=== PATIENT | female | born 1990 | race Caucasian/White ===

== ENCOUNTER 2016-05-15 12:26 | Inpatient (IN) | payer OTHER ==
[~2016-05-15] VITALS: Ht 170.2 cm; Wt 83.9 kg
[2016-05-15 15:07] LABS: ABSOLUTE BASOPHIL COUNT 0.1 /CUMM (0.0-0.2); ABSOLUTE EOSINOPHIL COUNT 0.1 /CUMM (0.0-0.7); ABSOLUTE GRANULOCYTE CT 5.2 /CUMM (1.4-6.5); ABSOLUTE LYMPH COUNT 2.9 /CUMM (1.2-3.4); ABSOLUTE MONOCYTE COUNT 0.9 /CUMM (0.10-0.60); BASOPHIL % 0.9 % (0.0-2.0); EOSINOPHIL % 1.3 % (0-5); GRANULOCYTE % 57.1 % (42.2-75.2); MEAN CORPUSCULAR HGB 27.6 PG (27.0-31.0); MEAN CORPUSCULAR HGB CONC 33.2 G/DL (33.0-37.0); MEAN CORPUSCULAR VOLUME 83.1 FL (81.0-99.0); MEAN PLATELET VOLUME 8.6 FL (7.4-10.4); PLATELET COUNT 250 /CUMM (130-400); RBC DISTRIBUTION WIDTH 16.4 % (11.5-14.5); RED BLOOD CELL CT 5.29 /CUMM (4.20-5.40); WHITE BLOOD CELL COUNT 9.1 /CUMM (4.8-10.8)
--- NOTE | 2016-05-15 15:18 | ED GI/GU/ABDOMINAL COMPLAINT ---
History of Present Illness General Chief Complaint: Abdominal Pain/Flank Pain Stated Complaint: NVD, ABD PAIN Source: patient Exam Limitations: no limitations Allergies Coded Allergies: doxycycline (Severe, INCREASED CRANIAL PRESSURE 05/15/16) morphine (Severe, ANAPHYLAXIS 05/15/16) lorazepam (From ATIVAN) (Intermediate, PSYCHOSIS 05/15/16) meperidine (From DEMEROL) (Intermediate, RASH 05/15/16) ibuprofen (From MOTRIN) (Mild, HX GASTRIC ULCERS, CAUSES IRRITATION AND BLEEDING 05/15/16) Reconcile Medications Clonazepam 0.5 MG TABLET 1 TAB PO BIDP PRN ANXIETY (Reported) Desvenlafaxine Succinate (Pristiq ER) 50 MG TAB.ER.24H 1.5 TAB PO DAILY Depression (Reported) Dexlansoprazole (Dexilant) 60 MG CAP.DR.BP 1 CAP PO BID REFLUX (Reported) Hydroxyzine HCl 50 MG TABLET 1 TAB PO BID INSOMNIA (Reported) Methadone Hydrochloride (Methadone HCl) 10 MG TABLET 65 MG PO DAILY PAIN ( Reported) CONFIRMED WITH [facility] ON 05/16/16 Mirtazapine 30 MG TABLET 2 TAB PO QHS INSOMNIA (Reported) Ondansetron (Zofran Odt) 4 MG TAB.RAPDIS 1 TAB SL TID NAUSEA (Reported) Pantoprazole Sodium (Protonix) 40 MG TABLET.DR 1 TAB PO DAILY REFLUX ( Reported) Prazosin HCl (Minipress) 5 MG CAPSULE 1 CAP PO QPM INSOMNIA (Reported) Prochlorperazine Maleate 5 MG TABLET 1 TAB PO 4 TIMES/DAY Nausea (Reported) Quetiapine Fumarate 200 MG TABLET 1 TAB PO BID DEPRESSION/INSOMNIA (Reported) Quetiapine Fumarate 200 MG TABLET 3 TAB PO QPM INSOMNIA (Reported) Triage Note: HISTORY OF PANCREATITIS AND THAT FOR 2 WEEKS SHE HAS HAD ABD PAIN RUQ INTO HER BACK AND N/V Triage Nurses Notes Reviewed? yes ? N Is pt currently ? No HPI: This patient is a 26-year-old female with a past medical history including perforated gastric ulcers and hereditary pancreatitis who presented to the emergency department today brought in by her mother for evaluation of abdominal pain and vomiting 3 days. Patient reported that she does vomit more than the average person at baseline. However, over the last week she has had increased nausea and abdominal. She reported that the abdominal pain is located in her right upper quadrant and radiates to her back. The pain gets up to a 10 out of 10, sharp. The pain is worse with eating. Over the last day she has had increased vomiting and has been unable to tolerate any food by mouth. She denied any blood in the vomitus. She denies any diarrhea or blood in the stool. The patient reported no fevers, chills, chest pain, difficulty breathing, or back pain. (MARILY ASKEW PA-C) Vital Signs & Intake/Output Vital Signs & Intake/Output Vital Signs Date Time Temp Pulse Resp B/P Pulse O2 O2 Flow FiO2 Ox Delivery Rate 05/17 0623 97.8 62 20 122/70 96 Room Air 05/16 2157 97.7 56 20 102/64 95 Room Air 05/16 1346 97.7 72 18 112/70 95 Room Air ED Intake and Output 05/17 0000 05/16 1200 Intake Total 2500 1000 Output Total 1525 230 Balance 975 770 Intake, IV 2050 800 Intake, Oral 450 200 Output, 275 Emesis Output, Urine 1250 230 Patient 185 lb Weight Past History Travel History Traveled to [place] past 21 day No Medical History Any Pertinent Medical History? 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 No (MARILY ASKEW PA-C) Review of Systems Review of Systems Constitutional: Reports: no symptoms. EENTM: Reports: no symptoms. Respiratory: Reports: no symptoms. Cardiovascular: Reports: no symptoms. GI: Reports: see HPI. Genitourinary: Reports: no symptoms. Musculoskeletal: Reports: no symptoms. Skin: Reports: no symptoms. Neurological/Psychological: Reports: no symptoms. All Other Systems: Reviewed and Negative (MARILY ASKEW PA-C) Physical Exam Physical Exam Gastrointestinal: normal bowel sounds, soft, no organomegaly, NONDISTENDED. nORMOACTIVE BOWEL SOUNDS. tYMPANIC TO PERCUSSION IN ALL 4 QUADRANTS. nO REBOUND OR GUARDING. tENDERNESS TO PALPATION IN THE RIGHT UPPER QUADRANT. pOSITIVE Zee SIGN. nO mCbURNEY'S POINT TENDERNESS. Comments: Well-developed well-nourished person in no acute distress HEENT: Normal EENT exam, head normocephalic, moist mucous membranes Neck: Supple, no lymphadenopathy Back: Normal inspection Cardiovascular: Regular rate and rhythm with no murmurs, rubs or gallops Respiratory: No respiratory distress. Speaking in full sentences. Lungs clear to auscultation bilaterally Extremity: No edema, no calf tenderness to palpation, normal and equal pulses. Neuro: Alert oriented x3, cranial nerves II through XII grossly intact. Skin: No appreciable rash on exposed skin, skin is warm and dry. Psych: Mood and affect is normal Core Measures ACS in differential dx? Yes Severe Sepsis Present: No Septic Shock Present: No (AZAR GEORGE,MARILY) Progress Differential Diagnosis: AAA, AMI, appendicitis, biliary colic, bowel obstruction , colon cancer, cholecystitis, diverticulitis, ectopic , gastritis, hepatitis, ischemic bowel, inflamm bowel dis, intrauterine , kidney stone, ovarian cyst, ovarian torsion, pancreatitis, PID/cervicitis, peptic ulcer , PUD/GERD, perforated viscous, threatened AB, UTI/pyelo Diagnostic Imaging: Viewed by Me: CT Scan. Discussed w/RAD: CT Scan. Radiology Impression: PATIENT: DAY NEGRETE PRESENT AGE: 26 PATIENT ACCOUNT NO: [id number] : 90 LOCATION: [facility] ORDERING PHYSICIAN: MARILY ASKEW PA-C SERVICE DATE: 05/15/16 EXAM TYPE: CAT - CT ABD & PELVIS W/O IV CONTRAS EXAMINATION: CT ABDOMEN AND PELVIS WITHOUT CONTRAST CLINICAL INFORMATION: 29-year-old female with abdominal pain and vomiting. COMPARISON: None. TECHNIQUE: Multidetector volumetric imaging was performed from the superior aspect of the liver through the pubic symphysis. Sagittal and coronal reformatted images were obtained on the technologist's workstation. Note that evaluation of the solid viscera of the abdomen is compromised by the lack of IV contrast. DLP: 500 mGy-cm. FINDINGS: Application Trainer view shows no evidence of intestinal obstruction. The patient's gallbladder has been surgically removed. LUNG BASES: There is mild dependent atelectasis of the left lower lobe. LIVER, GALLBLADDER, AND BILIARY TREE: The liver is normal in size, shape, and attenuation. No focal hepatic lesion or biliary ductal dilatation is present. The gallbladder has been removed. PANCREAS: Unremarkable. SPLEEN: Unremarkable. ADRENAL GLANDS: Unremarkable. KIDNEYS AND URETERS: The kidneys are normal in size, shape, and attenuation. No hydronephrosis, hydroureter, or calculi seen. No perinephric stranding. BLADDER: Significantly dilated. The dome of the bladder nearly approaches the level of the umbilicus. GASTROINTESTINAL TRACT: The small and large bowel are unremarkable. The appendix is unremarkable. ABDOMINAL WALL: No significant hernia is appreciated. LYMPH NODES: Normal. VASCULAR: Unremarkable. PELVIC VISCERA: Unremarkable. OSSEOUS STRUCTURES: Unremarkable. IMPRESSION: Abnormally dilated urinary bladder. DICTATED BY: HUGO BUSTAMANTE MD DATE/TIME DICTATED:05/15/161740 YOUTH PASTOR: MARCELINO DATE/TIME TRANSCRIBED:05/15/161740 CONFIDENTIAL, DO NOT COPY WITHOUT APPROPRIATE AUTHORIZATION. <Electronically signed in Other Vendor System> SIGNED BY: HUGO BUSTAMANTE MD 05/15/16 0208 Initial ED EKG: normal axis, normal intervals, normal p-waves, normal QRS complex, normal sinus rhythm, no ST T wave changes, 57 BPM Hand-Off Endorsed To: NADINE SINGLETON MD Endorsed Time: 2052 Pending: other (AZAR GEORGE,MARILY) Plan of Care: Orders Procedure Date/time Status Change service to 05/17 UN Active Lab Add-on Test 05/17 [facility] Active Granados, Insertion/Removal/Asses 05/16 1658 Active Pain Treatment and Response 05/16 1456 Active HEPATIC FUNCTION PANEL 05/16 0723 Complete Admit to inpatient 05/16 UNK Active Current Medications Sig/Shorty Start time Last Medication Dose Stop Time Status Admin Bisacodyl 5 MG DAILY 05/17 1000 AC (Dulcolax) Senna/Docusate Sodium 1 TAB BID 05/17 1000 AC (Senokot S) Bisacodyl 10 MG DAILY PRN 05/17 0915 AC (Dulcolax Supp) Clonazepam 0.5 MG BID PRN 05/16 1000 AC (KlonoPIN) 05/23 0959 Methadone HCl 65 MG DAILY 05/16 1000 AC (Dolophine) Acetaminophen 650 MG Q6P PRN 05/16 0515 AC (Tylenol) Departure Departure Disposition: STILL A PATIENT Condition: Stable Clinical Impression Primary Impression: Intractable vomiting Qualifiers: Vomiting type: unspecified Nausea presence: with nausea Qualified Code: R11.2 - Nausea with vomiting, unspecified Secondary Impressions: Bladder distention UTI (urinary tract infection) Qualifiers: Urinary tract infection type: site unspecified Hematuria presence: without hematuria Qualified Code: N39.0 - Urinary tract infection, site not specified Referrals: UNKNOWN (PCP) Departure Forms: Customer Survey General Discharge Information Observation Note Rationale for Observation: My rational for observation is as follows [this patient is a 26-year-old female with past medical history including hereditary pancreatitis and perforated gastric ulcers who presented to the emergency department today for evaluation of abdominal pain, nausea, vomiting. This patient's nausea and vomiting has been uncontrolled here in the emergency department. CT scan revealed dilated urinary bladder. Granados catheter is currently in place. UTI based on urinalysis this patient will need to be observed in the hospital for IV fluids, IV antiemetics, Granados catheter decompression, IV antibiotics, pain management, possible urology consultation, possible senior ui designer consultation, and close monitoring.]. (MARILY ASKEW PA-C) Departure Time of Disposition: 2122 Observation Note Physician Advisor Notified: SHAUNA MCBRIDE,NAHED [address] Patient In: Non-ED OBS Care Area Rationale for Observation: My rational for observation is as follows . PA/ROBOTIC WELD TECHNICIAN Co-Sign Statement Statement: ED Attending supervision documentation- [] I saw and evaluated the patient. I have also reviewed all the pertinent lab results and diagnostic results. I agree with the findings and the plan of care as documented in the PA's/ROBOTIC WELD TECHNICIAN's documentation. [X] I have reviewed the ED Record and agree with the PA's/ROBOTIC WELD TECHNICIAN's documentation. [] Additions or exceptions (if any) to the PAs/ROBOTIC WELD TECHNICIAN's note and plan are summarized below: [] (MANI MCBRIDE,NADINE) without hematuria Qualified Code: N39.0 - Urinary tract infection, site not specified Referrals: UNKNOWN (PCP) Departure Forms: Customer Survey General Discharge Information Observation Note Rationale for Observation: My rational for observation is as follows [this patient is a 26-year-old female with past medical history including hereditary pancreatitis and perforated gastric ulcers who presented to the emergency department today for evaluation of abdominal pain, nausea, vomiting. This patient's nausea and vomiting has been uncontrolled here in the emergency department. CT scan revealed dilated urinary bladder. Granados catheter is currently in place. UTI based on urinalysis this patient will need to be observed in the hospital for IV fluids, IV antiemetics, Granados catheter decompression, IV antibiotics, pain management, possible urology consultation, possible senior ui designer consultation, and close monitoring.]. (AZAR GEORGE,MARILY) Departure Time of Disposition: 2122 Observation Note Physician Advisor Notified: SHAUNA MCBRIDE,NAHED [address] Patient In: Non-ED OBS Care Area Rationale for Observation: My rational for observation is as follows . PA/ROBOTIC WELD TECHNICIAN Co-Sign Statement Statement: ED Attending supervision documentation- [] I saw and evaluated the patient. I have also reviewed all the pertinent lab results and diagnostic results. I agree with the findings and the plan of care as documented in the PA's/ROBOTIC WELD TECHNICIAN's documentation. [X] I have reviewed the ED Record and agree with the PA's/ROBOTIC WELD TECHNICIAN's documentation. [] Additions or exceptions (if any) to the PAs/ROBOTIC WELD TECHNICIAN's note and plan are summarized below: [] (MANI MCBRIDE,NADINE)
--- NOTE | 2016-05-15 17:55 | CT SCAN REPORT ---
EXAMINATION: CT ABDOMEN AND PELVIS WITHOUT CONTRAST CLINICAL INFORMATION: 29-year-old female with abdominal pain and vomiting. COMPARISON: None. TECHNIQUE: Multidetector volumetric imaging was performed from the superior aspect of the liver through the pubic symphysis. Sagittal and coronal reformatted images were obtained on the technologist's workstation. Note that evaluation of the solid viscera of the abdomen is compromised by the lack of IV contrast. DLP: 500 mGy-cm. FINDINGS: Lithographers Printer view shows no evidence of intestinal obstruction. The patient's gallbladder has been surgically removed. LUNG BASES: There is mild dependent atelectasis of the left lower lobe. LIVER, GALLBLADDER, AND BILIARY TREE: The liver is normal in size, shape, and attenuation. No focal hepatic lesion or biliary ductal dilatation is present. The gallbladder has been removed. PANCREAS: Unremarkable. SPLEEN: Unremarkable. ADRENAL GLANDS: Unremarkable. KIDNEYS AND URETERS: The kidneys are normal in size, shape, and attenuation. No hydronephrosis, hydroureter, or calculi seen. No perinephric stranding. BLADDER: Significantly dilated. The dome of the bladder nearly approaches the level of the umbilicus. GASTROINTESTINAL TRACT: The small and large bowel are unremarkable. The appendix is unremarkable. ABDOMINAL WALL: No significant hernia is appreciated. LYMPH NODES: Normal. VASCULAR: Unremarkable. PELVIC VISCERA: Unremarkable. OSSEOUS STRUCTURES: Unremarkable. IMPRESSION: Abnormally dilated urinary bladder.
--- NOTE | 2016-05-16 01:07 | History & Physical ---
VIANEY MCBRIDE,ANDREAS 05/16/16 0107: General Information and HPI MD Statement: I have seen and personally examined DAY NEGRETE and documented this H&P. The patient is a 26 year old F who presented with a patient stated chief complaint of abdominal pain[]. Source of Information: patient, family, old records Exam Limitations: no limitations History of Present Illness: 26 YO female who recently moved from [place] to [place] in 2014 with pmh significant for hereditary pancreatitis, perforated gastric ulcers presents c/o abdominal pain that has been present for the past 2 weeks along with vomiting for the past 3-4 days. Reports being unable to eat due to extreme nausea along with bilious vomiting. Denies blood in vomitus. Reports 4-5 episodes per day, denies diarrhea or constipation, febrile episodes or sick contacts. Reports that her abdominal pain is 9/10 and sharp over her right upper abdomen. She denies chest pain, sob, palpitations, lightheadness. She has had similar symptoms in the past and sees [place] [facility]. Allergies/Medications Allergies: Coded Allergies: doxycycline (Severe, INCREASED CRANIAL PRESSURE 05/15/16) morphine (Severe, ANAPHYLAXIS 05/15/16) lorazepam (From ATIVAN) (Intermediate, PSYCHOSIS 05/15/16) meperidine (From DEMEROL) (Intermediate, RASH 05/15/16) ibuprofen (From MOTRIN) (Mild, HX GASTRIC ULCERS, CAUSES IRRITATION AND BLEEDING 05/15/16) Home Med list Clonazepam 0.5 MG TABLET 1 TAB PO BIDP PRN ANXIETY (Reported) Ondansetron (Zofran Odt) 4 MG TAB.RAPDIS 1 TAB SL TID NAUSEA (Reported) Compliance With Home Meds: UNKNOWN Past History Travel History Traveled to [place] past 21 day No Medical History Neurological: NONE EENT: NONE Cardiovascular: NONE Respiratory: NONE Gastrointestinal: pancreatitis, VOMITTING SYNDROME PERFORATED GASTRIC ULCER Hepatic: NONE Renal: NONE Musculoskeletal: NONE Psychiatric: NONE Endocrine: NONE Blood Disorders: NONE Cancer(s): NONE 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 Home Who Do You Live With? parent, sibling Services at Home: None Primary Language: Prydeinig Smoking Status: Current Everyday Smoker ETOH Use: denies use Illicit Drug Use: marijuana Functional Ability ADLs Independent: dressing, eating, toileting, bathing. Ambulation: independent IADLs Independent: shopping, housework, finances, food prep, telephone, transportation , medication admin. 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 Denies: fever. EENTM: Reports: no symptoms. Cardiovascular: Denies: chest pain, palpitations, peripheral edema, syncope. Respiratory: Denies: cough, hemoptysis, orthopnea, short of breath, sputum production. GI: Reports: abdominal pain, nausea, vomiting. Denies: bloating, constipation, diarrhea, distention, bowel incontinence, bloody stool, changes in stool. Genitourinary: Denies: discharge, dysuria, frequency, hematuria, pain. Musculoskeletal: Denies: back pain, joint pain, muscle pain. Skin: Reports: no symptoms. Neurological/Psychological: Reports: anxiety. Hematologic/Endocrine: Reports: no symptoms. Immunologic/Allergic: Reports: no symptoms. All Other Systems: Reviewed and Negative Date of LMP: 05/01/16 Exam & Diagnostic Data Last 24 Hrs of Vital Signs/I&O Vital Signs Date Time Temp Pulse Resp B/P Pulse O2 O2 Flow FiO2 Ox Delivery Rate 05/16 0128 98.0 56 20 90/56 98 Room Air 05/16 0104 97.6 50 18 106/56 95 Room Air 05/15 2240 97.8 70 16 110/55 96 Room Air Room Air 05/15 1929 97.7 76 16 108/56 95 Room Air 05/15 1619 98.1 68 16 113/57 96 Room Air 05/15 1513 98 Room Air 05/15 1247 98.4 122 16 121/82 97 Room Air Intake & Output 05/16 0800 05/16 0000 05/15 1600 Intake Total 1000 1000 Output Total 180 800 Balance -691 895 0288 Intake, IV 1000 1000 Output, Urine 180 800 Patient 185 lb 185 lb Weight Physical Exam General Appearance Alert, Oriented X3, Cooperative, Mild Distress Skin No Breakdown, No Significant Lesion HEENT Atraumatic, PERRLA, EOMI, dry mucous membranes Neck Supple, No JVD, No LAD Cardiovascular Regular Rate, Normal S1, Normal S2, No Murmurs Lungs Clear to Auscultation, Normal Air Movement Abdomen Normal Bowel Sounds, Soft, No Tenderness Neurological Normal Gait, Normal Speech, Strength at 5/5 X4 Ext Extremities No Edema, Normal Pulses Vascular Normal Pulses Diagnostic Data Other Results IMPRESSION: Abnormally dilated urinary bladder. Assessment/Plan Assessment: 26 YO F with pmh of hereditory pancreatitis, perforated gastric ulcers presents to the hospital c/o intense abdominal pain with associated nausea/vomiting found to have abn dilated urinary bladder which is likely secondary to narcotic use. We will admit to floor. Intractable vomiting. This could be due her IBS vs cyclic vomiting syndrome. She would need to curb her marijaunia use to further identify the cause of her repeated vomiting. She has been advised of this. At this point we will rest her bowels, provide IVF to maintain electrolytes Bladder Distension This is most likely due to her use of narcotics, after placement of dee 800cc was removed from bladder. We will keep the dee in at this time and remove in the am, and trial her. She was advised to limit use of narcotics. UTI unlikely as afebrile, negative symptomology, normal white count. Dirty sample? will hold off on abx at this time and monitor for signs of infection. Abdominal Pain Chronic in nature, using methadone for pain control, goes to [facility] in [place]. Recieves 60mg of methadone daily for pain control. Will start methadone, this will need to be confirmed in the am by team. As Ranked By This Provider Problem List: 1. Intractable vomiting Qualifiers Vomiting type: unspecified Nausea presence: with nausea Qualified Code: R11.2 - Nausea with vomiting, unspecified 2. Bladder distention 3. UTI (urinary tract infection) Qualifiers Urinary tract infection type: site unspecified Hematuria presence: without hematuria Qualified Code: N39.0 - Urinary tract infection, site not specified Core Measures/Miscellaneous Acute Coronary Syndrome ACS Diagnosis: No Cerebrovascular Accident CVA/TIA Diagnosis: No Congestive Heart Failure CHF Diagnosis: No Venous Thromboembolism VTE Risk Factors: Obesity, Smoking VTE Prophylaxis Ordered Inpt: Pharm- Lovenox No Mech VTE prophylaxis d/t: No contraindications No VTE Pharm Prophylaxis d/t: No contraindications VTE Diagnosis: No VTE Type: NONE VTE Confirmed by (Test): NONE Severe Sepsis Severe Sepsis Present: No Septic Shock Septic Shock Present: No Miscellaneous Documentation Attending Case Discussed With: CAMPBELL MCBRIDE,[facility] Primary Care Physician: UNKNOWN Patient sees these Specialists GI Level of Patient Care: General Medicine CAMPBELL MCBRIDE, [facility] 05/16/16 0649: Attending MD Review Statement Attending Statement Attending MD Statement: examined this patient, discuss w/resident/PA/MEDICAL AND HEALTH SERVICES MANAGER, agreed w/resident/PA/MEDICAL AND HEALTH SERVICES MANAGER Attending Assessment/Plan: 26 yo F with h/o hereditary chronic pancreatitis, cyclic vomiting, chronic pain on methadone ([facility] [place], 60 mg), perforate gastric ulcer s/p surgery, is here with intractable nausea, vomiting and RUQ abdominal pain for past 3 days. She has recently moved from [place] to [place]. She has been seen at [place] or [facility] previously. Denies diarrhea, fever or chills. Patient reports using opiates from her friend to help with her abdominal pain. She also tried weed with no relief. Vitals: borderline BP. Labs: AST 64, ALT 62, amylase/lipase normal, UA packed epi cells (not a good sample), Utox positive for opiates, methadone, benzos and cannabis. Alcohol < 10. CT abd/pelvis: Abnormally dialted urinary bladder. Dee inserted in ER 800 cc urine drained. 1. Intractable nausea, vomiting and RUQ pain in the setting of narcotic use vs. CVS vs. Gastroparesis. 23 Obs on GM, NPO, IV fluids, anti-emetics, IV PPI. Advance diet as tolerated. Avoid opiates for pain management. Consider tylenol or tramadol and ketorolac for pain. Consider GI consult if her symptoms do not improve. 2. No evidence of UTI. 3. Chronic pain. Ct. Methadone after confirming dose in AM. DVT ppx Lovenox. Full code.
[2016-05-16 01:28] VITALS: BP 90/56
[2016-05-16] MEDS ORDERED: CLONAZEPAM0.5 M2 PO (04:06)
[2016-05-16] MEDS ORDERED: ZOFRAN ODT4 M1 SL (04:07)
[2016-05-16 07:06] VITALS: BP 130/70
[2016-05-16] MEDS ORDERED: HYDROXYZINE HCL50 M1 PO (09:35)
[2016-05-16] MEDS ORDERED: QUETIAPINE FUM200 M1 PO ×2 (09:36→09:37)
[2016-05-16] MEDS ORDERED: MINIPRESS5 MG PO (09:36)
[2016-05-16] MEDS ORDERED: MIRTAZAPINE30 M2 PO (09:37)
[2016-05-16] MEDS ORDERED: PRISTIQ ER50 MG PO (09:38)
[2016-05-16] MEDS ORDERED: PROTONIX40 M3 PO (09:39)
[2016-05-16] MEDS ORDERED: DEXILANT60 M1 PO (09:40)
[2016-05-16] MEDS ORDERED: PROCHLORPERAZINE5 M2 PO (09:41)
[2016-05-16] MEDS ORDERED: METHADONE HCL10 M1 PO (09:44)
[2016-05-16 13:46] VITALS: BP 112/70
--- NOTE | 2016-05-16 15:07 | Cons- Gastroenterology ---
General Information and HPI Allergies/Medications Allergies: Coded Allergies: doxycycline (Severe, INCREASED CRANIAL PRESSURE 05/15/16) morphine (Severe, ANAPHYLAXIS 05/15/16) lorazepam (From ATIVAN) (Intermediate, PSYCHOSIS 05/15/16) meperidine (From DEMEROL) (Intermediate, RASH 05/15/16) ibuprofen (From MOTRIN) (Mild, HX GASTRIC ULCERS, CAUSES IRRITATION AND BLEEDING 05/15/16) Home Med List: Clonazepam 0.5 MG TABLET 1 TAB PO BIDP PRN ANXIETY (Reported) Desvenlafaxine Succinate (Pristiq ER) 50 MG TAB.ER.24H 1.5 TAB PO DAILY Depression (Reported) Dexlansoprazole (Dexilant) 60 MG CAP.DR.BP 1 CAP PO BID REFLUX (Reported) Hydroxyzine HCl 50 MG TABLET 1 TAB PO BID INSOMNIA (Reported) Methadone Hydrochloride (Methadone HCl) 10 MG TABLET 65 MG PO DAILY PAIN ( Reported) CONFIRMED WITH [facility] [place] ON 05/16/16 Mirtazapine 30 MG TABLET 2 TAB PO QHS INSOMNIA (Reported) Ondansetron (Zofran Odt) 4 MG TAB.RAPDIS 1 TAB SL TID NAUSEA (Reported) Pantoprazole Sodium (Protonix) 40 MG TABLET.DR 1 TAB PO DAILY REFLUX ( Reported) Prazosin HCl (Minipress) 5 MG CAPSULE 1 CAP PO QPM INSOMNIA (Reported) Prochlorperazine Maleate 5 MG TABLET 1 TAB PO 4 TIMES/DAY Nausea (Reported) Quetiapine Fumarate 200 MG TABLET 1 TAB PO BID DEPRESSION/INSOMNIA (Reported) Quetiapine Fumarate 200 MG TABLET 3 TAB PO QPM INSOMNIA (Reported) Past History Travel History Traveled to [place] past 21 day No Medical History Blood Transfusion Hx: No Neurological: NONE EENT: NONE Cardiovascular: NONE Respiratory: NONE Gastrointestinal: pancreatitis, VOMITTING SYNDROME PERFORATED GASTRIC ULCER Hepatic: NONE Renal: NONE Musculoskeletal: NONE Psychiatric: NONE Endocrine: NONE Blood Disorders: NONE Cancer(s): NONE PROTECTION ENGINEER/Reproductive: NONE Surgical History Surgical History: non-contributory Psychosocial History Where Do You Live? Home Who Do You Live With? parent, sibling Services at Home: None Primary Language: [place] Citizen Smoking Status: Current Everyday Smoker ETOH Use: denies use Illicit Drug Use: marijuana Functional Ability ADLs Independent: dressing, eating, toileting, bathing. Ambulation: independent IADLs Independent: shopping, housework, finances, food prep, telephone, transportation , medication admin. 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
[2016-05-16 21:57] VITALS: BP 102/64
[2016-05-17 06:23] VITALS: BP 122/70
[2016-05-17 14:01] VITALS: BP 118/64
--- NOTE | 2016-05-17 16:01 | PN- Housestaff ---
RADHA REDDY MD 05/17/16 1600: Subjective Follow-up For: Intractible Nausea/Vomiting Chronic Pancreatitis Subjective: Patient seen and examined. She is seen lying flat in her bed appearing mildly uncomfortable. She appears to be in no acute distress. She reports 3/4 episode of vomiting overnight and states that she "brings up what [she] drinks". She has not tried any solid food and states she hasn't eaten since the previous sunday. She is complaining of the discomfort associated with the dee catheter and reports associated constipation as she is "afraid to strain" while the dee catheter is in. Otherwise she denies any headache, fever, chills, chest pain, shortness of breath, palpitations, diarrhea. No overnight events reported. Review of Systems Constitutional: Reports: see HPI. Objective Last 24 Hrs of Vital Signs/I&O Vital Signs Date Time Temp Pulse Resp B/P Pulse O2 O2 Flow FiO2 Ox Delivery Rate 05/17 1401 98.0 64 20 118/64 95 05/17 0623 97.8 62 20 122/70 96 Room Air 05/16 2157 97.7 56 20 102/64 95 Room Air Intake & Output 05/17 1600 05/17 0800 05/17 0000 Intake Total 1550 Output Total 500 250 900 Balance -500 -250 650 Intake, IV 1200 Intake, Oral 350 Number 0 Bowel Movements Output, 200 Emesis Output, Urine 500 250 700 Physical Exam General Appearance: Alert, Oriented X3, Cooperative, No Acute Distress Other Physical Findings: General - well developed, well nourished tired/anxious young woman in no acute distress HEETN - NCAT, PERRL, EOMI, anicteric sclera, dry mucuous membranes CVS - S1, S2 w/o m/g/r Resp - CTA bilaterally GI - soft, moderate RUQ/epigastric tenderness, nondistended, bowel sounds present Neuro - awake and alert, CN II - XII grossly intact Ext - distal pulses 2+, no lower extremity edema Current Medications: Current Medications Sig/Shorty Start time Last Medication Dose Route Stop Time Status Admin Acetaminophen 650 MG Q6P PRN 05/16 0515 AC PO Bisacodyl 5 MG DAILY 05/17 1000 AC PO Bisacodyl 10 MG DAILY PRN 05/17 0915 AC AR Clonazepam 0.5 MG BID PRN 05/16 1000 AC PO 05/23 0959 Diazepam 2 MG Q12P PRN 05/17 1745 AC PO Enoxaparin Sodium 40 MG DAILY 05/16 1000 AC 05/17 SC 0822 Hydromorphone HCl 0.5 MG Q4P PRN 05/16 1000 AC 05/17 IV 1706 Ketorolac 15 MG Q8P PRN 05/16 0115 AC 05/17 Tromethamine IV 05/21 0114 1221 Methadone HCl 65 MG DAILY 05/16 1000 AC PO Metoclopramide HCl 10 MG Q6P PRN 05/16 0915 AC 05/17 IV 1625 Ondansetron HCl 4 MG Q6P PRN 05/16 0830 DC 05/17 IV 0421 Pantoprazole Sodium 40 MG DAILY 05/16 1000 AC 05/17 IV 0822 Patient Medication 1 ED ONE ONE 05/17 1415 DC Teaching ED 05/17 1416 Promethazine HCl 25 MG Q4P PRN 05/17 1400 AC 05/17 IV 05/24 1359 1423 Promethazine HCl 25 MG ONCE ONE 05/16 1945 DC 05/16 IV 05/16 1946 1948 Senna/Docusate Sodium 1 TAB BID 05/17 1000 AC PO Sodium Chloride 1,000 ML Q6H 05/16 1030 AC 05/17 IV 1627 Trimethobenzamide HCl 200 MG TID PRN 05/16 1800 AC 05/17 IM 1208 Assessment/Plan Assessment: Patient continues to have intractible nausea/vomiting despite an aggressive antiemetic regimen. She is unable to tolerate any liquids by mouth and is declining trying any solid foods. Dee catheter that was placed for urinary retention will be removed today to initiate a voiding trial. Collateral information regarding her previous GI workup from her gastroenterologists Dr Guardado and her provider at [facility] was unavailable today. She is continued on her antiemetic regimen and dilaudid for pain control. Intractible Nausea/Vomiting/Chronic Pancreatitis: History of chronic pancreatitis since "age 16", previously a patient of pediatric screen print operator Dr. Guardado of [place], now seen by a screen print operator at [facility]. She was reportedly supposed to have an upper endoscopy for further evaluation of her symptoms as an outpatient but has not yet persued this reportedly due to insurance reasons. She reports multiple hospitalizations similar to this admission, but admits these symptoms are "much worse". -NS@150mL/hr -Pancreatic enzymes, on hold for nausea/vomiting -Tigan 200mg IM TID PRN nausea -Phenergan 25mg IV Q4H PRN nausea -Metoclopramide 10mg IV Q6H PRN nausea -Zofran discontinued, reportedly "does not help" -Protonix 40mg IV Daily -GI Consult Insomnia/Depression: Patient takes multiple oral medications for a reported history of depression and insomnia. -Hold oral medications, restart when tolerating PO -Monitor for signs of withdrawal / altered mental status / psychosis Chronic Opiate Dependence/Polysubstance abuse: History of opiate abuse/dependence, on methadone. Dose of 65mg confirmed with Methadone clinic last received 05/14/16. Urine toxicology postive for opiates, methadone, benzodiazepnes, and canabis on admission. -Methadone 65mg PO Daily -Valium 2mg PO Q12H PRN agitation Constipation: -Dulcolax SUPP Daily PRN -Dulcolax 5mg PO Daily -Senokot 1 TAB PO BID Pain Plan: -Acetaminophen 650mg PO Q6H PRN Pain 1-3 -Toradol 15mg IV Q8H PRN Pain 4-6 -Dilaudid 0.5mg IV Q4H PRN Pain 7-10 Diet - Clear liquid diet DVT PPx - Lovenox Code Status - FULL CODE Problem List: 1. Intractable vomiting Pain Ratin Pain Location: Abdomen Pain Goal: Pain 7 or less Pain Plan: As noted in plan Tomorrow's Labs & Rationales: CBC - hx of gastric bleed, monitor for hemoglobin drop BEP - nausea vomiting, monitor for electrolyte abnormalities LAURENCE DAIGLE MD 05/17/16 1722: Attending MD Review Statement Attending Statement Attending MD Statement: examined this patient, discuss w/resident/PA/TESTING CONSULTANT, agreed w/resident/PA/TESTING CONSULTANT, reviewed EMR data (avail) Attending Assessment/Plan: 26F PMH anxiety, depression, chronic abdominal pain, history of gastric ulcers and cholecystectomy, family history of hereditary pancreatitis but never confirmed in patient presenting with intractable nausea, vomiting, and diffuse abdominal pain. Pain and nausea are slightly improved today but patient is still unable to keep anything down. She is helped by Phenergen and is trying to eat and drink. No BM for a week. Afebrile, stable vitals, labs unremarkable. Plan - Continue IV hydration - Continue Phenergen, Zofran, Reglan - Continue IV Dilaudid - Valium 2.5mg q12h PRN - Obtain outpatient GI records - Consider GI consult if no improvement by tomorrow - Advance diet as tolerated - Monitor electrolytes - Continue home medications - DVT PPx
[2016-05-17 22:51] VITALS: BP 118/80
--- NOTE | 2016-05-18 07:15 | PN- Housestaff ---
BARRY MCBRIDE,RADHA 05/18/16 0714: Subjective Follow-up For: Intractible Nausea/Vomiting Subjective: Patient seen and examined. She is seen sitting upright in bed resting comfortably. She appears to be in no acute distress. She admits that her nausea is mildly better today, but states that her abdomenal pain in still present. She has not been able to eat much more than austrian ice but wants to try more foods that are within her vegetarian diet. Additionally she denies any headache, fever, chills, chest pain, shortness of breath, nausea, vomiting, diarrhea. No overnight events. Review of Systems Constitutional: Reports: see HPI. Objective Last 24 Hrs of Vital Signs/I&O Vital Signs Date Time Temp Pulse Resp B/P Pulse O2 O2 Flow FiO2 Ox Delivery Rate 05/18 1342 97.9 57 20 128/60 96 Room Air 05/17 2251 98.6 67 20 118/80 96 Room Air Intake & Output 05/18 1600 05/18 0800 05/18 0000 Intake Total 1250 1210 1600 Output Total 350 650 Balance 1250 860 950 Intake, IV 1200 1200 1600 Intake, Oral 50 10 Number 0 0 Bowel Movements Output, Urine 350 650 Physical Exam General Appearance: Alert, Oriented X3, Cooperative, No Acute Distress Other Physical Findings: General - well developed, well nourished young woman in no acute distress HEENT - NCAT, PERRL, EOMI, anicteric sclera, MMM CVS - S1, S2 w/o m/g/r Resp - CTA bilaterally GI - soft, mild RUQ/epigastric tenderness, nondistended, bowel sounds present Neuro - Awake and alert, CN II - XII grossly intact Ext - 2+ distal pulses, no cyanosis/clubbing/edema Current Medications: Current Medications Sig/Shorty Start time Last Medication Dose Route Stop Time Status Admin Acetaminophen 650 MG Q6P PRN 05/16 0515 AC PO Bisacodyl 5 MG DAILY 05/17 1000 AC PO Bisacodyl 10 MG DAILY PRN 05/17 0915 AC [place] Clonazepam 0.5 MG BID PRN 05/16 1000 AC PO 05/23 0959 Diazepam 2 MG BID PRN 05/18 1045 AC 05/18 IV 1120 Diazepam 2 MG Q12P PRN 05/17 1745 DC PO Enoxaparin Sodium 40 MG DAILY 05/16 1000 AC 05/17 SC 0822 Hydromorphone HCl 0.5 MG Q4P PRN 05/16 1000 AC 05/18 IV 1327 Ketorolac 15 MG Q8P PRN 05/16 0115 AC 05/17 Tromethamine IV 05/21 0114 1221 Methadone HCl 65 MG DAILY 05/16 1000 AC 05/18 PO 0932 Metoclopramide HCl 10 MG Q6 05/18 1800 AC IV Metoclopramide HCl 10 MG Q6P PRN 05/16 0915 DC 05/18 IV 1130 Pantoprazole Sodium 40 MG BID 05/18 2200 AC IV Pantoprazole Sodium 40 MG DAILY 05/16 1000 DC 05/18 IV 0800 Patient Medication 1 ED .STK-MED ONE 05/18 1336 DC Teaching ED 05/18 1337 Prochlorperazine 5 MG Q6P PRN 05/18 1045 AC 05/18 IV 1326 Promethazine HCl 25 MG Q4P PRN 05/17 1400 AC 05/18 IV 05/24 1359 0800 Senna/Docusate Sodium 1 TAB BID 05/17 1000 AC PO Sodium Chloride 1,000 ML Q6H 05/16 1030 AC 05/18 IV 1445 Trimethobenzamide HCl 200 MG .STK-MED ONE 05/18 0305 DC IM 05/18 0306 Trimethobenzamide HCl 200 MG TID PRN 05/16 1800 AC 05/18 IM 0311 Last 24 Hrs of Lab/Alejandro Results Last 24 Hrs of Labs/Mics: Laboratory Tests 05/18/16 1110: Anion Gap 8, Estimated GFR > 60, BUN/Creatinine Ratio 4.0 L Assessment/Plan Assessment: Gastroenterology was reconsulted today for patients persistent nausea/vomiting despite an aggressive antiemetic regimen. It was decided to increase her protonix to BID and make her reglan a standing dose. Her diet was advanced, should she have persistent nausea/vomiting and is still unable to tolerate her diet Dr. Ceron will perform an upper endoscopy on her tomorrow. She is NPO overnight in anticipation of this. Her outpatient pain medicine physician Dr. Rolon was contacted today to obtain collateral information. She was last reportedly seen on 08/19/15 where it was decided she would require a gastric empyting study and upper endoscopy, but reports she was lost to follow up. He states that their records do not document a history of herediary pancreatitis and it was possibly given to her from her pediatric pain medicine physician. He is treating her for cyclic vomiting syndrome with oral antiemetics. His records willl be faxed to us for review. Intractible Nausea/Vomiting/Chronic Pancreatitis: History of chronic pancreatitis since "age 16", previously a patient of pediatric pain medicine physician Dr. Guardado of [place], now seen by a pain medicine physician at [facility]. She was reportedly supposed to have an upper endoscopy for further evaluation of her symptoms as an outpatient but has not yet persued this reportedly due to insurance reasons. She reports multiple hospitalizations similar to this admission, but admits these symptoms are "much worse". Her pain medicine physician Dr. Hall was contacted in regards to her clinical presentation and states that she has no documented evidence of pancreatitis and has been seen in his office twice for cyclical vomiting syndrome. His office is sending records regarding this. -NS@150mL/hr -Pancreatic enzymes, on hold for nausea/vomiting -Tigan 200mg IM TID PRN nausea -Phenergan 25mg IV Q4H PRN nausea -Metoclopramide 10mg IV Q6H PRN nausea -Zofran discontinued, reportedly "does not help" -Protonix 40mg IV BID -GI Consult Insomnia/Depression: Patient takes multiple oral medications for a reported history of depression and insomnia. -Hold oral medications, restart when tolerating PO -Monitor for signs of withdrawal / altered mental status / psychosis Chronic Opiate Dependence/Polysubstance abuse: History of opiate abuse/dependence, on methadone. Dose of 65mg confirmed with Methadone clinic last received 05/14/16. Urine toxicology postive for opiates, methadone, benzodiazepnes, and canabis on admission. -Methadone 65mg PO Daily -Valium 2mg PO Q12H PRN agitation Constipation: -Dulcolax SUPP Daily PRN -Dulcolax 5mg PO Daily -Senokot 1 TAB PO BID Pain Plan: -Acetaminophen 650mg PO Q6H PRN Pain 1-3 -Toradol 15mg IV Q8H PRN Pain 4-6 -Dilaudid 0.5mg IV Q4H PRN Pain 7-10 Diet - Clear liquid diet DVT PPx - Lovenox Code Status - FULL CODE Problem List: 1. Intractable vomiting Pain Ratin Pain Location: Abdomen Pain Goal: Pain 7 or less Pain Plan: As noted in plan Tomorrow's Labs & Rationales: BEP - nausea/vomiting LAURENCE DAIGLE MD 05/18/16 1435: Attending MD Review Statement Attending Statement Attending MD Statement: examined this patient, discuss w/resident/PA/EXECUTIVE ASSISTANT TO PRESIDENT, agreed w/resident/PA/EXECUTIVE ASSISTANT TO PRESIDENT, reviewed EMR data (avail) Attending Assessment/Plan: 26F PMH anxiety, depression, chronic abdominal pain, history of gastric ulcers and cholecystectomy, family history of hereditary pancreatitis but never confirmed in patient presenting with intractable nausea, vomiting, and diffuse abdominal pain. Pain and nausea are slightly improved today but patient is still unable to keep anything down. She is helped by Phenergen and is trying to eat and drink. No BM for a week. Afebrile, stable vitals, labs unremarkable. Slight improvement from yesterday. Able to tolerate sips of liquids but no solids. Still with pain. Plan - Continue IV hydration - Continue Phenergen, Zofran, Reglan, Compazine - Continue IV Dilaudid - Valium 2mg q12h PRN - Obtain outpatient GI records - Follow GI recommendations, may go for EGD tomorrow if no improvement in diet - Advance diet as tolerated - Monitor electrolytes - Continue home medications - DVT PPx
--- NOTE | 2016-05-18 11:55 | Cons- Gastroenterology ---
General Information and HPI Consulting Request Date of Consult: 05/18/16 Requested By: LAURENCE DAIGLE MD Reason for Consult: Intractable nausea and vomiting, history of hereditary pancreatitis. Source of Information: patient Exam Limitations: no limitations History of Present Illness: Ms. 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 She reports that her abdominal pain was consistent with her prior attacks of pancreatitis with midepigastric abdominal pain that radiated through to her back. This was associated with nausea and bilious vomiting. She reports the episodes of vomiting are similar to previous hospitalization she has had in the past and this has generally resolved with 1-2 days of antiemetics and antacids, but she notes that this episode seems to be lasting longer than it typically does. She is having normal bowel movements and she denies any bright blood per rectum, steatorhea, melena, diarrhea, or constipation. On admission she was hemodynamically stable and afebrile. She had unremarkable blood work and she was admitted to the medical service where she has received narcotics for pain control and IV Reglan, IV Tigan and IV Zofran, but has continued to have nausea and vomiting and inability to tolerate solid food intake. Her pain has improved and she has remained afebrile. Medical records have not been able to be obtained from her pediatric or adult gastroenterolosgist in [place]. She reports that she takes creon at home for her pancreatitis, but hasn't been getting it here because of the vomiting. She also reports that consideration has been given for an outpatient EGD by her fruit press operator, but this apparently hasn' t happened yet secondary to insurance issues. Allergies/Medications Allergies: Coded Allergies: doxycycline (Severe, INCREASED CRANIAL PRESSURE 05/15/16) morphine (Severe, ANAPHYLAXIS 05/15/16) lorazepam (From ATIVAN) (Intermediate, PSYCHOSIS 05/15/16) meperidine (From DEMEROL) (Intermediate, RASH 05/15/16) ibuprofen (From MOTRIN) (Mild, HX GASTRIC ULCERS, CAUSES IRRITATION AND BLEEDING 05/15/16) Home Med List: Clonazepam 0.5 MG TABLET 1 TAB PO BIDP PRN ANXIETY (Reported) Desvenlafaxine Succinate (Pristiq ER) 50 MG TAB.ER.24H 1.5 TAB PO DAILY Depression (Reported) Dexlansoprazole (Dexilant) 60 MG CAP.BP 1 CAP PO BID REFLUX (Reported) Hydroxyzine HCl 50 MG TABLET 1 TAB PO BID INSOMNIA (Reported) Methadone Hydrochloride (Methadone HCl) 10 MG TABLET 65 MG PO DAILY PAIN ( Reported) CONFIRMED WITH [facility] [place] ON 05/16/16 Metoclopramide HCl (Reglan) 10 MG TABLET 1 TAB PO TIDPRN NAUSEA/VOMITING 30 minutes before meals and bedtime Mirtazapine 30 MG TABLET 2 TAB PO QHS INSOMNIA (Reported) Ondansetron (Zofran Odt) 4 MG TAB.RAPDIS 1 TAB SL TID NAUSEA (Reported) Pantoprazole Sodium (Protonix) 40 MG TABLET.DR 1 TAB PO DAILY REFLUX ( Reported) Prazosin HCl (Minipress) 5 MG CAPSULE 1 CAP PO QPM INSOMNIA (Reported) Prochlorperazine Maleate 5 MG TABLET 1 TAB PO 4 TIMES/DAY Nausea (Reported) Quetiapine Fumarate 200 MG TABLET 1 TAB PO BID DEPRESSION/INSOMNIA (Reported) Quetiapine Fumarate 200 MG TABLET 3 TAB PO QPM INSOMNIA (Reported) Tramadol HCl 50 MG TABLET 1 TAB PO TIDPRN PAIN Current Medications: Current Medications Sig/Shorty Start time Last Medication Dose Route Stop Time Status Admin Acetaminophen 650 MG Q6P PRN 05/16 0515 AC PO Bisacodyl 5 MG DAILY 05/17 1000 AC PO Bisacodyl 10 MG DAILY PRN 05/17 0915 AC MD Clonazepam 0.5 MG BID PRN 05/16 1000 AC PO 05/23 0959 Diazepam 2 MG BID PRN 05/18 1045 AC 05/18 IV 1120 Diazepam 2 MG Q12P PRN 05/17 1745 DC PO Enoxaparin Sodium 40 MG DAILY 05/16 1000 AC 05/17 SC 0822 Hydromorphone HCl 0.5 MG Q4P PRN 05/16 1000 AC 05/18 IV 0802 Ketorolac 15 MG Q8P PRN 05/16 0115 AC 05/17 Tromethamine IV 05/21 0114 1221 Methadone HCl 65 MG DAILY 05/16 1000 AC 05/18 PO 0932 Metoclopramide HCl 10 MG Q6P PRN 05/16 0915 AC 05/18 IV 1130 Ondansetron HCl 4 MG Q6P PRN 05/16 0830 DC 05/17 IV 0421 Pantoprazole Sodium 40 MG DAILY 05/16 1000 AC 05/18 IV 0800 Patient Medication 1 ED ONE ONE 05/17 1415 DC Teaching ED 05/17 1416 Prochlorperazine 5 MG Q6P PRN 05/18 1045 AC IV Promethazine HCl 25 MG Q4P PRN 05/17 1400 AC 05/18 IV 05/24 1359 0800 Senna/Docusate Sodium 1 TAB BID 05/17 1000 AC PO Sodium Chloride 1,000 ML Q6H 05/16 1030 AC 05/18 IV 0640 Trimethobenzamide HCl 200 MG .STK-MED ONE 05/18 0305 DC IM 05/18 0306 Trimethobenzamide HCl 200 MG TID PRN 05/16 1800 AC 05/18 IM 0311 Past History Travel History Traveled to [place] past 21 day No Medical History Blood Transfusion Hx: No Neurological: NONE EENT: NONE Cardiovascular: NONE Respiratory: NONE Gastrointestinal: pancreatitis, VOMITTING SYNDROME PERFORATED GASTRIC ULCER Hepatic: NONE Renal: NONE Musculoskeletal: NONE Psychiatric: NONE Endocrine: NONE Blood Disorders: NONE Cancer(s): NONE 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 Home Who Do You Live With? parent, sibling Services at Home: None Primary Language: Panamanian Smoking Status: Current Everyday Smoker ETOH Use: denies use Illicit Drug Use: marijuana Functional Ability ADLs Independent: dressing, eating, toileting, bathing. Ambulation: independent IADLs Independent: shopping, housework, finances, food prep, telephone, transportation , medication admin. 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 Denies: fever. EENTM: Denies: no symptoms. Cardiovascular: Denies: no symptoms. Respiratory: Denies: no symptoms. GI: Reports: see HPI. Genitourinary: Denies: no symptoms. Musculoskeletal: Denies: no symptoms. Skin: Denies: no symptoms. Neurological/Psychological: Reports: depressed. Hematologic/Endocrine: Denies: no symptoms. Immunologic/Allergic: Denies: no symptoms. All Other Systems: Reviewed and Negative Exam & Diagnostic Data Vital Signs and I&O Vital Signs Date Time Temp Pulse Resp B/P Pulse O2 O2 Flow FiO2 Ox Delivery Rate 05/17 2251 98.6 67 20 118/80 96 Room Air 05/17 1401 98.0 64 20 118/64 95 Intake & Output 05/18 04005/17 04005/16 0400 Intake Total 1210 1600 1080 1550 1950 1000 Output Total 350 650 775 900 675 980 Balance 860 950 511 183 3037 20 Intake, IV 1200 1600 1050 1200 1650 1000 Intake, Oral 10 30 350 300 Number 0 0 Bowel Movements Output, 25 200 75 Emesis Output, Urine 350 650 750 700 600 980 Patient 185 lb Weight Physical Exam General Appearance: well developed/nourished, alert, awake, anxious, mild distress Head: atraumatic, normal appearance Eyes: Bilateral: normal appearance. Ears, Nose, Throat: normal pharynx, normal ENT inspection, hearing grossly normal Neck: normal inspection, supple, full range of motion Respiratory: normal breath sounds, chest non-tender, no respiratory distress Cardiovascular: regular rate/rhythm Gastrointestinal: normal bowel sounds, soft, non-tender Rectal: deferred Back: normal inspection, normal range of motion Extremities: normal inspection, no edema Neurologic/Psych: no motor/sensory deficits, awake, alert, oriented x 3 Skin: intact, normal color, warm/dry Results Pertinent Lab Results: Laboratory Tests 05/18 05/16 05/15 1110 0723 1610 Chemistry Sodium (137 - 145 mmol/L) Pending 139 Potassium (3.5 - 5.1 mmol/L) Pending 3.8 Chloride (98 - 107 mmol/L) Pending 107 Carbon Dioxide (22 - 30 mmol/L) Pending 22 Anion Gap (5 - 16) Pending 10 BUN Pending Creatinine Pending BUN/Creatinine Ratio Pending Total Bilirubin (0.2 - 1.3 mg/dL) 0.7 Direct Bilirubin (< 0.4 mg/dL) 0.4 AST (14 - 36 U/L) 38 H ALT (9 - 52 U/L) 53 H Alkaline Phosphatase (<127 U/L) 80 Total Protein (6.3 - 8.2 g/dL) 5.7 L Albumin (3.5 - 5.0 g/dL) 3.1 L Urines Urine Test NEGATIVE 05/15 05/15 1610 1544 Chemistry Lactic Acid Cancelled Toxicology Urine Opiates Screen (>2000 NG/ML) > 4000.00 H Methadone Screen (>300 NG/ML) > 735 H Barbiturate Screen (>200 NG/ML) < 60 Ur Phencyclidine Scrn (>25 NG/ML) 7.60 Amphetamines Screen (>1000 NG/ML) < 100 U Benzodiazepines Scrn (>200 NG/ML) > 800 H Urine Cocaine Screen (>300 NG/ML) < 50 Urine Cannabis Screen (>50 NG/ML) > 80.00 H Urines Urinalysis LIGHT H Urine Color (YEL,AMB,STR) YEL Urine Clarity (CLEAR) HAZY H Urine pH (5.0 - 8.0) 6.0 Ur Specific [place] (1.001 - 1.035) 1.010 Urine Protein (NEG,<30 MG/DL) NEG Urine Ketones (NEG) 15 H Urine Nitrite (NEG) NEG Urine Bilirubin (NEG) NEG Urine Urobilinogen (0.1 - 1.0 EU/dl) 0.2 Ur Leukocyte Esterase (NEG) SMALL H Ur Microscopic SEDIMENT EXAMINED Urine RBC (0 - 5 /HPF) RARE Urine WBC (0 - 2 /HPF) 10-15 H Ur Epithelial Cells (NONE,FEW) PACKD H Urine Mucus (FEW,NONE) MANY H Urine Hemoglobin (NEG) TRACE-INTACT Urine Glucose (N MG/DL) NEG 05/15 1455 Chemistry Sodium (137 - 145 mmol/L) 138 Potassium (3.5 - 5.1 mmol/L) 4.8 Chloride (98 - 107 mmol/L) 103 Carbon Dioxide (22 - 30 mmol/L) 24 Anion Gap (5 - 16) 11 BUN (7 - 17 mg/dL) 9 Creatinine (0.5 - 1.0 mg/dL) 0.6 Estimated GFR (>60 ml/min) > 60 BUN/Creatinine Ratio (7 - 25 %) 15.0 Glucose (65 - 99 mg/dL) 73 Lactic Acid (0.7 - 2.1 mmol/L) 0.8 Calcium (8.4 - 10.2 mg/dL) 9.3 Total Bilirubin (0.2 - 1.3 mg/dL) 0.8 Direct Bilirubin (< 0.4 mg/dL) 0.6 H AST (14 - 36 U/L) 64 H ALT (9 - 52 U/L) 62 H Alkaline Phosphatase (<127 U/L) 107 Total Protein (6.3 - 8.2 g/dL) 7.8 Albumin (3.5 - 5.0 g/dL) 4.4 Globulin (1.9 - 4.2 gm/dL) 3.4 Albumin/Globulin Ratio (1.1 - 2.2 %) 1.3 Amylase (30 - 110 U/L) 30 Lipase (23 - 300 U/L) 45 Hematology CBC w Diff NO MAN DIFF REQ WBC (4.8 - 10.8 /CUMM) 9.1 RBC (4.20 - 5.40 /CUMM) 5.29 Hgb (12.0 - 16.0 G/DL) 14.6 Hct (37 - 47 %) 44.0 MCV (81.0 - 99.0 FL) 83.1 MCH (27.0 - 31.0 PG) 27.6 RDW (11.5 - 14.5 %) 16.4 H Plt Count (130 - 400 /CUMM) 250 MPV (7.4 - 10.4 FL) 8.6 Gran % (42.2 - 75.2 %) 57.1 Lymphocytes % (20.5 - 51.1 %) 31.3 Monocytes % (1.7 - 9.3 %) 9.4 H Eosinophils % (0 - 5 %) 1.3 Basophils % (0.0 - 2.0 %) 0.9 Absolute Granulocytes (1.4 - 6.5 /CUMM) 5.2 Absolute Lymphocytes (1.2 - 3.4 /CUMM) 2.9 Absolute Monocytes (0.10 - 0.60 /CUMM) 0.9 H Absolute Eosinophils (0.0 - 0.7 /CUMM) 0.1 Absolute Basophils (0.0 - 0.2 /CUMM) 0.1 PUBS MCHC (33.0 - 37.0 G/DL) 33.2 Toxicology Serum Alcohol (<10 MG/DL) < 10.0 Imaging/Other Studies: FINDINGS: Cytotechnologist/Histotechnologist view shows no evidence of intestinal obstruction. The patient's gallbladder has been surgically removed. LUNG BASES: There is mild dependent atelectasis of the left lower lobe. LIVER, GALLBLADDER, AND BILIARY TREE: The liver is normal in size, shape, and attenuation. No focal hepatic lesion or biliary ductal dilatation is present. The gallbladder has been removed. PANCREAS: Unremarkable. SPLEEN: Unremarkable. ADRENAL GLANDS: Unremarkable. KIDNEYS AND URETERS: The kidneys are normal in size, shape, and attenuation. No hydronephrosis, hydroureter, or calculi seen. No perinephric stranding. BLADDER: Significantly dilated. The dome of the bladder nearly approaches the level of the umbilicus. GASTROINTESTINAL TRACT: The small and large bowel are unremarkable. The appendix is unremarkable. ABDOMINAL WALL: No significant hernia is appreciated. LYMPH NODES: Normal. VASCULAR: Unremarkable. PELVIC VISCERA: Unremarkable. OSSEOUS STRUCTURES: Unremarkable. IMPRESSION: Abnormally dilated urinary bladder. Assessment/Plan Assessment/Recommendations: Assessment: Ms. Bernstein is a 26-year-old female with a reported history of hereditary pancreatitis who was admitted on May 16, with abdominal pain and vomiting consistent with her prior attacks of pancreatitis, but her amylase and lipase have been normal and a CAT scan, albeit without IV contrast, did not show any obvious pancreatic inflammation or pancreatic calcifications to suggest chronic pancreatitis. Therefore, I am not certain that she has chronic or hereditary pancreatitis and her symptoms may be from other causes such as gastroparesis from narcotics, cyclical vomiting syndrome or cannaboid induced cyclical vomiing syndrome, GERD or PUD. It is still possible she could have hereditary pancreatits, but it doesn't seem to be contributing to her current complaints. In any case, as her diet has not been able to be advanced and her pain has improved I will plan for an inpatient diagnostic EGD and it would also be helpful if further efforts can be made to obtain her medical records from her pediatric gastroenterologsit to help determine how the diagnsosis of herediary pancreatitis was made and also to see what has happened on any prior hospitalizations she may have had elsewhere. Recommendations: 1. Continue IV reglan through today and would change it to a standing order rather than as needed at least today 2. IV protoinx 40mg bid for now 3. Anti-reflux measures keeping the head of her bed elevated at all times 4. Advance diet as tolerated as patient allows 5. Re-attempt to get old records from her pediatric fruit press operator as to how the diagnosis of hereditary pancreatitis was established and also from any other hospitalizations that may be available 6. If her diet is not able to be advanced will arrange for a diagnostic EGD for tomorrow 7. Check stool for pancreatic fat and elastase to look for evidence of chronic pancreatitis of which she didn't have on her non-contast ct scan (ie. no calcifications) 8. Attempt to minimize narcotic use 9. Hydroelectric Station Chief against marijuana use which can also lead to cyclical vomiting. I will continue to follow this patient and make further recommendations based on her clinical course and resluts of the EGD if it is to be performed tomorrow. Problem List: 1. Intractable vomiting Consult Acknowledgment - Thank you for your consult request.
[2016-05-18 13:42] VITALS: BP 128/60
[2016-05-18 22:41] VITALS: BP 120/80
[2016-05-19 06:01] VITALS: BP 112/68
--- NOTE | 2016-05-19 07:17 | PN- Housestaff ---
BARRY MCBRIDE,RADHA 05/19/16 0717: Subjective Follow-up For: Intractible Nausea/Vomiting Subjective: Patient seen and examined. She is seen lying flat in bed resting comfortably. She appears to be in no acute distress. She was given a regular diet for dinner last night to include vegetarian options, however she reportedly did not eat any of it due to persistent nausea. She reports that her abdominal pain is mildly persistent. Otherwise she denies any headache, fever, chills, chest pain, shortness of breath, diarrhea. No overnight events reported. Review of Systems Constitutional: Reports: see HPI. Objective Last 24 Hrs of Vital Signs/I&O Vital Signs Date Time Temp Pulse Resp B/P Pulse O2 O2 Flow FiO2 Ox Delivery Rate 05/19 0601 98.9 61 18 112/68 96 Room Air 05/18 2241 99.0 52 20 120/80 97 Room Air 05/18 1342 97.9 57 20 128/60 96 Room Air Intake & Output 05/19 1600 05/19 0800 05/19 0000 Intake Total 1250 1275 Output Total Balance 1250 1275 Intake, IV 1250 1200 Intake, Oral 75 Patient 83.915 kg Weight Physical Exam General Appearance: Alert, Oriented X3, Cooperative, No Acute Distress Other Physical Findings: General - well developed, well nourished young woman in no acute distress HEENT - NCAT, PERRL, EOMI, anicteric sclera, MMM CVS - S1, S2 w/o m/g/r Resp - CTA bilaterally GI - soft, mild RUQ/epigastric tenderness, nondistended, bowel sounds present Neuro - Awake and alert, CN II - XII grossly intact Ext - 2+ distal pulses, no cyanosis/clubbing/edema Current Medications: Current Medications Sig/Shorty Start time Last Medication Dose Route Stop Time Status Admin Acetaminophen 650 MG Q6P PRN 05/16 0515 AC PO Bisacodyl 10 MG ONCE ONE 05/19 0745 DC AR 05/19 0746 Bisacodyl 5 MG DAILY 05/17 1000 AC PO Bisacodyl 10 MG DAILY PRN 05/17 0915 AC AR Clonazepam 0.5 MG BID PRN 05/16 1000 AC PO 05/23 0959 Diazepam 2 MG BID PRN 05/18 2345 AC 05/19 IV 0836 Diazepam 10 MG .STK-MED ONE 05/18 1110 DC IM 05/18 1111 Diazepam 2 MG BID PRN 05/18 1045 DC 05/18 IV 1120 Enoxaparin Sodium 40 MG DAILY 05/16 1000 AC 05/17 SC 0822 Hydromorphone HCl 0.4 MG ONCE ONE 05/19 0815 DC 05/19 IV 05/19 0816 0836 Hydromorphone HCl 0.5 MG ONCE ONE 05/19 0030 DC 05/19 IV 05/19 0031 0027 Hydromorphone HCl 0.5 MG ONCE ONE 05/18 1800 DC 05/18 IV 05/18 1801 1758 Hydromorphone HCl 0.5 MG Q4P PRN 05/16 1000 DC 05/18 IV 1327 Ketorolac 15 MG Q8P PRN 05/16 0115 AC 05/19 Tromethamine IV 05/21 0114 0635 Methadone HCl 65 MG DAILY 05/16 1000 AC 05/18 PO 0932 Metoclopramide HCl 10 MG Q6 05/18 1800 AC 05/19 IV 0515 Metoclopramide HCl 10 MG Q6P PRN 05/16 0915 DC 05/18 IV 1130 Pantoprazole Sodium 40 MG BID 05/18 2200 AC 05/19 IV 0837 Pantoprazole Sodium 40 MG DAILY 05/16 1000 DC 05/18 IV 0800 Patient Medication 1 ED .STK-MED ONE 05/18 1336 DC Teaching ED 05/18 1337 Prochlorperazine 5 MG Q6P PRN 05/18 1045 AC 05/18 IV 2021 Promethazine HCl 25 MG Q4P PRN 05/17 1400 AC 05/19 IV 05/24 1359 1017 Senna/Docusate Sodium 1 TAB BID 05/17 1000 AC PO Sodium Chloride 1,000 ML Q6H 05/16 1030 AC 05/19 IV 0449 Trimethobenzamide HCl 200 MG TID PRN 05/16 1800 AC 05/18 IM 0311 Last 24 Hrs of Lab/Alejandro Results Last 24 Hrs of Labs/Mics: Laboratory Tests 05/19/16 0735: Anion Gap 5, Estimated GFR > 60, BUN/Creatinine Ratio 4.0 L 05/18/16 1110: Anion Gap 8, Estimated GFR > 60, BUN/Creatinine Ratio 4.0 L, WBC Cancelled, RBC Cancelled, Hgb Cancelled, Hct Cancelled, MCV Cancelled, MCH Cancelled, RDW Cancelled, Plt Count Cancelled, MPV Cancelled, PUBS MCHC Cancelled Assessment/Plan Assessment: Patient did not tolerated her diet yesterday and remains with symptoms of anorexia/nausea/vomiting. She is to have an upper endoscopy today and to be discharged to home with instruction to follow up with Dr. Ceron as an outpatient for further evaluation and to be continued on her previous antiemetic regimen without any additional narcotic medicaitons. Intractible Nausea/Vomiting/Chronic Pancreatitis: History of chronic pancreatitis since "age 16", previously a patient of pediatric electrician refinery Dr. Guardado of [place], now seen by a electrician refinery at [facility]. She was reportedly supposed to have an upper endoscopy for further evaluation of her symptoms as an outpatient but has not yet persued this reportedly due to insurance reasons. She reports multiple hospitalizations similar to this admission, but admits these symptoms are "much worse". Her electrician refinery Dr. Hall was contacted in regards to her clinical presentation and states that she has no documented evidence of pancreatitis and has been seen in his office twice for cyclical vomiting syndrome. His office is sending records regarding this. -NS@150mL/hr -Pancreatic enzymes, on hold for nausea/vomiting -Tigan 200mg IM TID PRN nausea -Phenergan 25mg IV Q4H PRN nausea -Metoclopramide 10mg IV Q6H PRN nausea -Zofran discontinued, reportedly "does not help" -Protonix 40mg IV BID -GI Consult Insomnia/Depression: Patient takes multiple oral medications for a reported history of depression and insomnia. -Hold oral medications, restart when tolerating PO -Monitor for signs of withdrawal / altered mental status / psychosis Chronic Opiate Dependence/Polysubstance abuse: History of opiate abuse/dependence, on methadone. Dose of 65mg confirmed with Methadone clinic last received 05/14/16. Urine toxicology postive for opiates, methadone, benzodiazepnes, and canabis on admission. -Methadone 65mg PO Daily -Valium 2mg PO Q12H PRN agitation Constipation: -Dulcolax SUPP Daily PRN -Dulcolax 5mg PO Daily -Senokot 1 TAB PO BID Pain Plan: -Acetaminophen 650mg PO Q6H PRN Pain 1-3 -Toradol 15mg IV Q8H PRN Pain 4-6 -Dilaudid discontinued Diet - Clear liquid diet DVT PPx - Lovenox Code Status - FULL CODE Problem List: 1. Intractable vomiting Pain Ratin Pain Location: Abdomen Pain Goal: Pain 7 or less Pain Plan: As noted in plan Tomorrow's Labs & Rationales: None OXANA MCBRIDESURIPAIGE 05/19/16 1557: Attending MD Review Statement Attending Statement Attending MD Statement: examined this patient, discuss w/resident/PA/RISK SPECIALIST, agreed w/resident/PA/RISK SPECIALIST, reviewed EMR data (avail) Attending Assessment/Plan: 26F PMH anxiety, depression, chronic abdominal pain, history of gastric ulcers and cholecystectomy, family history of hereditary pancreatitis but never confirmed in patient presenting with intractable nausea, vomiting, and diffuse abdominal pain. Pain and nausea are slightly improved today but patient is still unable to keep anything down. She is helped by Phenergen and is trying to eat and drink. No BM for a week. Afebrile, stable vitals, labs unremarkable. Underwent EGD 2/3 that showed mild erosive gastritis and evidence of gastroparesis. Plan - Will advance diet and discharge home - Continue Reglan, Compazine - Continue home medications - Will follow up with GI as outpatient
--- NOTE | 2016-05-19 11:10 | Patient Discharge Instructions ---
Discharge Instructions General Discharge Information Special Instructions: Follow up with your primary care provider and Dr. Ceron of [facility] for further evaluation. Continue your previous home medication regimen. Acute Coronary Syndrome Inclusion Criteria At DC or during hospital stay patient has or had the following: ACS DIAGNOSIS No Discharge Core Measures Meds if any: Prescribed or Continued at Discharge Meds if any: NOT Prescribed or Continued at Discharge Congestive Heart Failure Inclusion Criteria At DC or during hospital stay patient has or had the following: CHF DIAGNOSIS No Discharge Core Measures Meds if any: Prescribed or Continued at Discharge Meds if any: NOT Prescribed or Continued at Discharge Cerebrovascular accident Inclusion Criteria At DC or during hospital stay patient has or had the following: CVA/TIA Diagnosis No Discharge Core Measures Meds if any: Prescribed or Continued at Discharge Meds if any: NOT Prescribed or Continued at Discharge Venous thromboembolism Inclusion Criteria VTE Diagnosis No VTE Type NONE VTE Confirmed by (Test) NONE Discharge Core Measures - Per Current guidelines, there needs to be overlap - treatment for the first 5 days of Warfarin therapy. - If discharged on Warfarin prior to 5 days of - overlap therapy, the patient will need to be - assessed for post discharge needs including - *Post discharge parental anticoagulation - *Warfarin and/or parental anticoagulation education - *Follow up date to check INR post discharge At least 5 days overlap therapy as Inpatient No Meds if any: Prescribed or Continued at Discharge Note: Overlap Therapy is Warfarin and Anticoagulant Meds if any: NOT Prescribed or Continued at Discharge
--- NOTE | 2016-05-19 11:13 | Discharge Summary ---
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 Her nausea is associated with frequent episodes of nonbloody/bilious vomiting and 9/10 sharp right upper quadrant abdominal pain. She reports multiple similar admissions in which they "give IV fluids and meds for a couple days and discharge her". Patient of pediatric financial professional Dr. Guardado and financial professional Dr. Rolon both of [place], where the patient is originally from. Amylase/lipase were within normal limits upon initial evaluation and CT abdomen/pelvis did not demonstrate any obvious acute pancreatitis, however did comment on a dilated bladder. Intractable nausea/vomiting possibly secondary to cyclical vomiting syndrome: Reported history of hereditary pancreatitis. Collateral information obtained from Dr. Rolon demonstrated that patient was last seen by his office on and was scheduled to have a outpatient upper endoscopy with gastric emptying study for her persistent complaints of nausea and vomiting. His records reportedly do not demonstrate any documentation suggestive of acute or chronic pancreatitis. Her pediatric financial professional could not be contacted. She was reportedly lost to follow-up due to moving and changing insurances. Patient was continued on an aggressive antiemetic regimen and Protonix while inpatient and given high rate intravenous fluids. GI consult was placed and patient received an upper endoscopy which demonstrated mild erosive gastritis. She was discharged to home with instruction to follow-up with Dr. Ceron of gastroenterology as outpatient for review of biopsies taken and further evaluation. Urinary retention: Urinary bladder was found to be distended on initial imaging which a Granados catheter was placed. A voiding trial was attempted after being transferred to the floor and patient was able to void spontaneously on her own. Opiate dependence: Patient reportedly takes daily methadone, dose confirmed with her methadone clinic. She was continued on this medication during inpatient, however refused it most days as she had intractable nausea/vomiting. Allergies: Coded Allergies: doxycycline (Severe, INCREASED CRANIAL PRESSURE 05/15/16) morphine (Severe, ANAPHYLAXIS 05/15/16) lorazepam (From ATIVAN) (Intermediate, PSYCHOSIS 05/15/16) meperidine (From DEMEROL) (Intermediate, RASH 05/15/16) ibuprofen (From MOTRIN) (Mild, HX GASTRIC ULCERS, CAUSES IRRITATION AND BLEEDING 05/15/16) Significant Procedures: Endoscopy Procedure Impression: 1. Mild erosive gastritis and suggestion of gastroparesis status post biopsies. 2. Grossly normal small bowel folds status post random biopsies. Pertinent Lab Results: Urine toxicology: -Opiates: >4000 -Methadone: >735 -Benzodiazepines: >800 -Cannabis: >80 Beta hCG: Negative Disposition Summary Disposition Principal Diagnosis: Intractable nausea/vomiting possibly secondary to cyclical vomiting syndrome Additional Diagnosis: Opiate dependence Discharge Disposition: home or self care Discharge Instructions General Discharge Information Code Status: Full Code Patient's Diet: Clear liquid diet, advance as tolerated Patient's Activity: Return to full activity as tolerated Follow-Up Instructions/Appts: Follow up with your primary care provider and Dr. Ceron of [facility] for further evaluation. Continue your previous home medication regimen. Medications at Discharge Discharge Medications: Continue taking these medications: Clonazepam (Clonazepam) 0.5 MG TABLET 1 Tablet ORAL 2 x Daily as needed as needed for ANXIETY Qty = 60 Ondansetron (Zofran Odt) 4 MG TAB.RAPDIS 1 Tablet SUBLINGUAL THREE TIMES DAILY Qty = 30 Hydroxyzine HCl (Hydroxyzine HCl) 50 MG TABLET 1 Tablet ORAL TWICE DAILY Qty = 60 Comments: NOT GIVEN WHILE IN HOSPITAL Prazosin HCl (Minipress) 5 MG CAPSULE 1 Capsule ORAL Every night Comments: NOT GIVEN WHILE IN HOSPITAL Quetiapine Fumarate (Quetiapine Fumarate) 200 MG TABLET 1 Tablet ORAL TWICE DAILY Qty = 60 Comments: NOT GIVEN WHILE IN HOSPITAL Quetiapine Fumarate (Quetiapine Fumarate) 200 MG TABLET 3 Tablet ORAL Every night Qty = 90 Comments: NOT GIVEN WHILE IN HOSPITAL Mirtazapine (Mirtazapine) 30 MG TABLET 2 Tablet ORAL TAKE AT BEDTIME Qty = 60 Comments: NOT GIVEN WHILE IN HOSPITAL Desvenlafaxine Succinate (Pristiq ER) 50 MG TAB.ER.24H 1.5 Tablet ORAL DAILY Qty = 45 Comments: NOT GIVEN WHILE IN HOSPITAL Pantoprazole Sodium (Protonix) 40 MG TABLET.DR 1 Tablet ORAL DAILY Comments: IV PROTONIX GIVEN WHILE IN HOSPITAL Dexlansoprazole (Dexilant) 60 MG CAP.BP 1 Capsule ORAL TWICE DAILY Comments: NOT GIVEN WHILE IN HOSPITAL. IV PROTONIX GIVEN. Prochlorperazine Maleate (Prochlorperazine Maleate) 5 MG TABLET 1 Tablet ORAL 4 TIMES A DAY Methadone Hydrochloride (Methadone HCl) 10 MG TABLET 65 Milligram ORAL DAILY Instructions: CONFIRMED WITH [facility] [place] ON 05/16/16 Comments: Last Taken: 05/19/16 Time: 2PM Start taking the following new medications: Metoclopramide HCl (Reglan) 10 MG TABLET 1 Tablet ORAL THREE TIMES A DAY NEEDED Qty = 21 No Refills Instructions: 30 minutes before meals and bedtime Tramadol HCl (Tramadol HCl) 50 MG TABLET 1 Tablet ORAL THREE TIMES A DAY NEEDED Qty = 10 No Refills Comments: NOT GIVEN WHILE IN HOSPITAL Copies To: TAMARA CERON MD
--- NOTE | 2016-05-19 12:42 | Proc Note Endoscopy ---
Endoscopy Procedure Medical History: unchanged (see meditech consult) Mental Status: alert/oriented Heart/Lung Eval Prior to Sedation: within normal limits Candidate for Sedation? Yes Procedure Date: 05/19/16 Procedure Type: EGD w/biopsy Stockroom Worker: Miguel Ceron MD ASA Classification: III Indications: Intractable nausea and vomiting. Instrument: diagnostic gastroscope Meds Received: MAC Patient's Tolerance: good Complications: none Extent Reached: second part of duodenum Procedure: After getting written informed consent the patient was placed in the left lateral decubitus position with pulse oximetry, cardiac monitoring, and supplemental oxygen given. A bite block was inserted and IV sedation was given until the desired effect was achieved. A high definition upper Olympus endoscope was then inserted into the mouth and advanced to the second portion of the duodenum with little difficulty. Retroflexed views and photodocumentation was obtained. Findings: Esophagus: The esophageal mucosa was grossly normal in appearance and there was a normal-appearing Z line at 40 cm from incisors. Stomach: The gastric mucosa was diffusely erythematous and there was one isolated, but prominent erosion in the antrum. There were no ulcers or masses appreciated. Distention was normal, but there was a moderate amount of leftover bile and peristalsis appeared minimally decreased. The pylorus was patent and easily traversable by the upper endoscope. Retroflexed views were normal and did not reveal a significant hiatal hernia. Random biopsies were obtained from the antrum and body of the stomach with cold biopsy forceps and were sent to pathology for further evaluation. Duodenum: The duodenal bulb, sweep, and folds were grossly normal appearance. Random biopsies were obtained from the second portion of the duodenum and were sent to pathology for further evaluation. Impression: 1. Mild erosive gastritis and suggestion of gastroparesis status post biopsies. 2. Grossly normal small bowel folds status post random biopsies. Recommendations: 1. Advance diet as tolerated. 2. Continue IV Reglan for now before meals regularly. 3. Change to oral Protonix. 4. Minimize narcotic use. 5. If her diet is not able to be advanced consideration will be given for a trial of IV erythromycin, but if she is able to eat it is safe to discharge her home to follow up as an outpatient. 6. She should follow up the pathology results me as an outpatient.
[2016-05-19] MEDS ORDERED: TRAMADOL HCL50 M1 PO (15:18)
[2016-05-19] MEDS ORDERED: REGLAN10 M1 PO (15:18)
[2016-05-19 15:23] VITALS: BP 110/60
== END 2016-05-19 16:07 | DRG 241 ==
LOC: ENRESERVDT → ENRESERVTM → ERH 12:26 → ERHI 21:23 → 2NA 21:23
PROVIDERS: Emergency Medicine; ADMIT Student in an Organized Health Care Education/Training Program
PROC: 0DB68ZX Excision of Stomach, Via Natural or Artificial Opening Endoscopic, Diagnostic (ICD-10-PCS; principal; 2016-05-19)
DX: K29.60 Other gastritis without bleeding (principal); R11.2 Nausea with vomiting, unspecified; R33.0 Drug induced retention of urine; T40.605A Adverse effect of unspecified narcotics, initial encounter; K86.1 Other chronic pancreatitis; F17.200 Nicotine dependence, unspecified, uncomplicated; R10.11 Right upper quadrant pain; F11.20 Opioid dependence, uncomplicated; G89.29 Other chronic pain; F32.9 Major depressive disorder, single episode, unspecified
CPT/HCPCS: 2NAP; 2NASP; ERO; 36415; 74176; 80307; 81001; 81025; 82436; 87086; 88305; 88312; 93005; 93010; 96374; 96375; 96376; G0480; J0131; J0780; J1170; J1650; J1885; J2405; J2550; J2765; J3250; Q2036

== ENCOUNTER 2016-06-06 09:08 | Inpatient (IN) | payer OTHER ==
[~2016-06-06] VITALS: Ht 170.2 cm; Wt 81.6 kg
[~2016-06-06 09:08] MED LIST: CLONAZEPAM0.5 M2 PO; DEXILANT60 M1 PO; HYDROXYZINE HCL50 M1 PO; METHADONE HCL10 M1 PO; MINIPRESS5 MG PO; MIRTAZAPINE30 M2 PO; PRISTIQ ER50 MG PO; PROCHLORPERAZINE5 M2 PO; PROTONIX40 M3 PO; QUETIAPINE FUM200 M1 PO; REGLAN10 M1 PO; TRAMADOL HCL50 M1 PO; ZOFRAN ODT4 M1 SL
--- NOTE | 2016-06-06 09:16 | NUR ---
PT STATES SHE HAS HAD N/V SINCE YESTERDAY. PT STATES SHE TOOK ZOFRAN, COMPAXONE AND PHENERGAN SUPPOSITORY'S AND NOTHING IS HELPING. PT WITH HX OF PANCREATITIS BUT DENIES DRINKING AT THIS TIME.
--- NOTE | 2016-06-06 09:34 | NUR ---
IV ATTMPTED X2 WITH NO SUCCESS. PT VERY DIFFICULT STICK WITH HX OF MULTIPLE PICC LINES FOR LYMES TREATMNET. IV NURSE ANDREW PAGED FOR IV ACCESS.
--- NOTE | 2016-06-06 09:42 | NUR ---
ANDREW, IV NURSE, AT THE BEDSIDE
--- NOTE | 2016-06-06 10:03 | ED GI/GU/ABDOMINAL COMPLAINT ---
History of Present Illness General Chief Complaint: Abdominal Pain/Flank Pain Stated Complaint: RIGHT SIDE ABD PAIN,+NV Source: patient, family, old records Exam Limitations: no limitations Vital Signs & Intake/Output Vital Signs & Intake/Output Vital Signs Date Time Temp Pulse Resp B/P Pulse O2 O2 Flow FiO2 Ox Delivery Rate 06/06 1718 97.1 54 20 125/65 99 Room Air 06/06 1540 97.8 06/06 1455 51 18 119/69 99 Room Air 06/06 1230 97.8 53 16 125/72 98 Room Air 06/06 0916 97.7 65 18 154/81 95 Room Air Allergies Coded Allergies: doxycycline (Severe, INCREASED CRANIAL PRESSURE 05/15/16) morphine (Severe, ANAPHYLAXIS 05/15/16) lorazepam (From ATIVAN) (Intermediate, PSYCHOSIS 05/15/16) meperidine (From DEMEROL) (Intermediate, RASH 05/15/16) ibuprofen (From MOTRIN) (Mild, HX GASTRIC ULCERS, CAUSES IRRITATION AND BLEEDING 05/15/16) Reconcile Medications Clonazepam 0.5 MG TABLET 1 TAB PO BIDP PRN ANXIETY (Reported) Desvenlafaxine Succinate (Pristiq ER) 50 MG TAB.ER.24H 1.5 TAB PO DAILY Depression (Reported) Dexlansoprazole (Dexilant) 60 MG CAP.DR.BP 1 CAP PO BID REFLUX (Reported) Hydroxyzine HCl 50 MG TABLET 1 TAB PO BID INSOMNIA (Reported) Methadone Hydrochloride (Methadone HCl) 10 MG TABLET 65 MG PO DAILY PAIN ( Reported) CONFIRMED WITH [facility] [place] ON 05/16/16 Metoclopramide HCl (Reglan) 10 MG TABLET 1 TAB PO TIDPRN NAUSEA/VOMITING 30 minutes before meals and bedtime Mirtazapine 30 MG TABLET 2 TAB PO QHS INSOMNIA (Reported) Multivitamin (Multi-Day Vitamins) 1 EACH TABLET 1 TAB PO DAILY SUPPLEMENT ( Reported) Ondansetron (Zofran Odt) 4 MG TAB.RAPDIS 1 TAB SL TID NAUSEA (Reported) Pantoprazole Sodium (Protonix) 40 MG TABLET.DR 1 TAB PO DAILY REFLUX ( Reported) Prazosin HCl (Minipress) 5 MG CAPSULE 1 CAP PO QPM INSOMNIA (Reported) Prochlorperazine Maleate 5 MG TABLET 1 TAB PO 4 TIMES/DAY Nausea (Reported) Quetiapine Fumarate 200 MG TABLET 1 TAB PO BID DEPRESSION/INSOMNIA (Reported) Quetiapine Fumarate 200 MG TABLET 3 TAB PO QPM INSOMNIA (Reported) Triage Note: PT STATES SHE HAS HAD N/V SINCE YESTERDAY. PT STATES SHE TOOK ZOFRAN, COMPAXONE AND PHENERGAN SUPPOSITORY'S AND NOTHING IS HELPING Triage Nurses Notes Reviewed? yes LMP (ages 10-50): unknown ? n Is pt currently ? No Onset: several days Duration: day(s):, constant, continues in ED, waxing and waning Timing: recent history Quality/Severity: aching, sharpness, severe, vomiting Location: right upper quadrant Radiation: back Activities at Onset: eating Prior Abdominal Problems: similar symptoms Past Sexual History: Unobtainable at this time Modifying Factors: Worsens With: eating. Associated Symptoms: abdominal pain, loss of appetite, nausea/vomiting HPI: 4 days prior to admission patient complains of recurrent nausea vomiting unable to tolerate liquids with right upper quadrant pain described as sharp moderate to severe radiating to her back intermittent. She denies fever chills chest pain cough shortness of breath headache dysuria rash bleeding Past History Travel History Traveled to [place] past 21 day No Medical History Any Pertinent Medical History? see below for history Neurological: NONE EENT: NONE Cardiovascular: NONE Respiratory: NONE Gastrointestinal: pancreatitis, VOMITTING SYNDROME PERFORATED GASTRIC ULCER Hepatic: NONE Renal: NONE Musculoskeletal: NONE Psychiatric: NONE Endocrine: NONE Blood Disorders: NONE Cancer(s): NONE CHECKMAN/Reproductive: NONE History of MRSA: No History of VRE: No History of CDIFF: No Surgical History Surgical History: non-contributory Psychosocial History Services at Home None What is your primary language Latvian Tobacco Use: Current Daily Use Daily Tobacco Use Amount/Type: => 5 Cigarettes daily ETOH Use: denies use Illicit Drug Use: marijuana Family History Hx Contributory? Yes Review of Systems Review of Systems Constitutional: Reports: see HPI, malaise, weakness. EENTM: Reports: no symptoms. Respiratory: Reports: no symptoms. Cardiovascular: Reports: no symptoms. GI: Reports: see HPI, abdominal pain, nausea, vomiting. Genitourinary: Reports: no symptoms. Musculoskeletal: Reports: no symptoms. Skin: Reports: no symptoms. Neurological/Psychological: Reports: no symptoms. Hematologic/Endocrine: Reports: no symptoms. Immunologic/Allergic: Reports: no symptoms. All Other Systems: Reviewed and Negative Physical Exam Physical Exam General Appearance: well developed/nourished, alert, awake, anxious, severe distress Head: atraumatic, normal appearance Eyes: Bilateral: normal appearance, PERRL, EOMI. Ears, Nose, Throat, Mouth: hearing grossly normal, dry mucous membranes Neck: normal inspection, supple, full range of motion, normal alignment Respiratory: normal breath sounds, chest non-tender, no respiratory distress, quiet respiration, lungs clear Cardiovascular: regular rate/rhythm, normal peripheral pulses, norml femoral pulses equa Peripheral Pulses: 4+ carotid (R), 4+ carotid (L) Gastrointestinal: normal bowel sounds, soft, no organomegaly, guarding, tenderness Back: normal inspection, normal range of motion Extremities: normal range of motion, no ligament instability Neurologic/Psych: no motor/sensory deficits, awake, alert, oriented x 3, normal gait, normal mood/affect, distribution collection operator II-XII nml as tested Skin: intact, normal color, warm/dry Core Measures ACS in differential dx? No Severe Sepsis Present: No Septic Shock Present: No Progress Differential Diagnosis: biliary colic, gastritis, pancreatitis, PUD/GERD Plan of Care: Orders Procedure Date/time Status Clear Liquid Diet 06/07 B Active Patient Data 06/06 1900 Active OXYGEN SETUP (GEN) 06/06 185 Active Saline Lock 06/[address] in observation 06/06 1856 Active Vital Signs 06/06 1856 Active Activity/Ambulation 06/06 1856 Active Code Status 06/06 1856 Active LACTIC ACID 06/06 1319 Complete Add-on Test (ER Only) 06/06 0955 Active LIPASE 06/06 0920 Complete COMPREHENSIVE METABOLIC PANEL 06/06 0920 Complete CBC WITHOUT DIFFERENTIAL 06/06 0920 Complete Current Medications Sig/Shorty Start time Last Medication Dose Stop Time Status Admin Azithromycin 500 MG ONCE ONE 06/06 0945 CAN (Zithromax) 06/06 1044 Dextrose/Water 250 ML (D5W) Ceftriaxone Sodium 1,000 MG ONCE ONE 06/06 0945 CAN (Rocephin) 06/06 0946 Laboratory Tests 06/06/16 1619: Lactic Acid Cancelled 06/06/16 1412: Lactic Acid 0.9 06/06/16 1412: Anion Gap 10, Estimated GFR > 60, BUN/Creatinine Ratio 23.3, Glucose 80, Calcium 9.4, Total Bilirubin 0.6, AST 21, ALT 42, Alkaline Phosphatase 94, Total Protein 7.5, Albumin 4.3, Globulin 3.2, Albumin/Globulin Ratio 1.3, Lipase 57, CBC w Diff NO MAN DIFF REQ, RBC 5.37, MCV 83.5, MCH 27.5, RDW 16.8 H, MPV 7.9, Gran % 57.4, Lymphocytes % 35.4, Monocytes % 6.5, Eosinophils % 0.3, Basophils % 0.4, Absolute Granulocytes 4.8, Absolute Lymphocytes 3.0, Absolute Monocytes 0.5, Absolute Eosinophils 0, Absolute Basophils 0, PUBS MCHC 32.9 L Initial ED EKG: none Departure Departure Time of Disposition: 1909 Disposition: STILL A PATIENT Condition: Stable Clinical Impression Primary Impression: Nondiabetic gastroparesis Secondary Impressions: Gastritis Qualifiers: Gastritis type: unspecified gastritis Chronicity: acute Gastritis bleeding: without bleeding Qualified Code: K29.00 - Acute gastritis without bleeding Referrals: UNKNOWN (PCP) Departure Forms: Customer Survey General Discharge Information Observation Note Sp[facility] With: [facility] Physician Advisor Notified: SHAUNA MCBRIDE,NAHED [address] Patient In: Non-ED OBS Care Area Rationale for Observation: My rational for observation is as follows intractable nausea vomiting abdominal pain serial lab exam IV antiemetic GI evaluation advance diet continuing care discharge planning. Procedures Central Line Central Line Lumen: single Central Line Procedure: Yes: bentadine prep?, sterile drapes applied, sterile dressing applied. Central Line Position: sublavian (R), patient refused neck IV Anesthesia: lidocaine 1% CC's of Anesthesia: 5 Complications: none Central Line Post Position: sutured, good blood return, position confirmed w/ CXR Critical Care Note Critical Care Note Critical Care Time: 30-74 min (40)
--- NOTE | 2016-06-06 10:16 | NUR ---
ANDREW REMAINS AT BEDSIDE
--- NOTE | 2016-06-06 10:30 | NUR ---
UNSUCCESSFUL ATTEMPTS FOR IV AND LABS BY ANDREW IV NURSE. DR KEEN AWARE.
--- NOTE | 2016-06-06 10:47 | NUR ---
INFORMATION RESOURCES DIRECTOR AT THE BEDSIDE
--- NOTE | 2016-06-06 11:07 | NUR ---
ASSUMING CARE OF PT
--- NOTE | 2016-06-06 12:07 | NUR ---
ATTEMPT X2 UNSUCCESSFUL FOR IV. PT AGREEABLE TO EJ AT THIS TIME
--- NOTE | 2016-06-06 12:24 | NUR ---
DR. KEEN AT BEDSIDE
--- NOTE | 2016-06-06 12:49 | NUR ---
DR. KEEN AT BEDSIDE FOR CENTRAL LINE INSERTION
--- NOTE | 2016-06-06 13:31 | NUR ---
PT DENIES CHANCE OF , HAS MENSTRUAL CYCLE CURRENTLY
--- NOTE | 2016-06-06 14:11 | RADIOLOGY REPORT ---
EXAMINATION: XR PORTABLE CHEST CLINICAL INFORMATION: Right subclavian line placement. COMPARISON: None. TECHNIQUE: Portable AP view of the chest was obtained. FINDINGS: Single AP view of the chest demonstrates a right subclavian catheter, with the distal tip of the catheter visualized terminating within the distal SVC. The lungs are well-expanded and clear without focal airspace consolidation. No pleural effusions or pneumothoraces are identified. Cardiomediastinal contours are within normal limits. Soft tissues are unremarkable. No acute osseous abnormality is identified. IMPRESSION: Right subclavian catheter terminates within the distal SVC. No acute pulmonary process is identified.
[2016-06-06 14:26] LABS: ABSOLUTE BASOPHIL COUNT 0 /CUMM (0.0-0.2); ABSOLUTE EOSINOPHIL COUNT 0 /CUMM (0.0-0.7); ABSOLUTE GRANULOCYTE CT 4.8 /CUMM (1.4-6.5); ABSOLUTE MONOCYTE COUNT 0.5 /CUMM (0.10-0.60); BASOPHIL % 0.4 % (0.0-2.0); EOSINOPHIL % 0.3 % (0-5); GRANULOCYTE % 57.4 % (42.2-75.2); HEMATOCRIT 44.8 % (37-47); MEAN CORPUSCULAR HGB 27.5 PG (27.0-31.0); MEAN CORPUSCULAR HGB CONC 32.9 G/DL (33.0-37.0); MEAN CORPUSCULAR VOLUME 83.5 FL (81.0-99.0); MEAN PLATELET VOLUME 7.9 FL (7.4-10.4); PLATELET COUNT 292 /CUMM (130-400); RBC DISTRIBUTION WIDTH 16.8 % (11.5-14.5); RED BLOOD CELL CT 5.37 /CUMM (4.20-5.40); WHITE BLOOD CELL COUNT 8.4 /CUMM (4.8-10.8)
--- NOTE | 2016-06-06 14:38 | NUR ---
NS BOLUS INFUSING. MEDICATED PER EMAR. FAMILY REMAINS AT BEDSIDE. OFFERS NO OTHER COMPLAINTS/REQUESTS AT THIS TIME
[2016-06-06] MEDS ORDERED: MULTI-DAY VITA1 EACH PO (14:47)
--- NOTE | 2016-06-06 15:09 | NUR ---
REPORT RECIVED AND CARE ASSUMED.
--- NOTE | 2016-06-06 16:01 | NUR ---
PAION IMPROVEMENT WITH TYLENOL IV.
--- NOTE | 2016-06-06 17:48 | NUR ---
CONTINUES TO EXPERIENCE NAUSEA. MD AWARE.
--- NOTE | 2016-06-06 17:54 | NUR ---
MEDICATED WITH ZOFRAN 4 MG IV.
--- NOTE | 2016-06-06 18:54 | NUR ---
PT TO BE ADMITTED PER DR KEEN.
--- NOTE | 2016-06-06 20:00 | NUR ---
BED ASSIGNMENT [id number]
--- NOTE | 2016-06-06 20:07 | NUR ---
REPORT GIVEN TO TJ MASON
[2016-06-06 21:08] VITALS: BP 140/77
--- NOTE | 2016-06-06 22:07 | History & Physical ---
HERMINIA CALLAHAN MD 06/06/167: General Information and HPI MD Statement: I have seen and personally examined DAY NEGRETE and documented this H&P. The patient is a 26 year old F who presented with a patient stated chief complaint of []. Source of Information: patient, old records Exam Limitations: no limitations History of Present Illness: Patient is a 26-year-old female with significant past medical history chronic hereditary pancreatitis(Dx at the age of 16), cyclic vomiting syndrome ? marijuana abuse, history of perforated gastric ulcer, chronic pain syndrome on methadone presented with chief complaints of abdominal pain on right upper side of abdomen, associated with nausea and vomiting since two day. Patient states that she had multiple episodes of vomiting associated with nausea since last 2 days. The vomitus contains food material, bilious in nature without any evidence of the blood. Patient states that she started having abdominal pain since last 2 days, located in right upper quadrant, intermittent, sharp/shooting, radiating to back, increased by eating, associated with nausea and vomiting and loss of appetite. She also complaining of dizziness and palpitation. Denies fevers, chills, chest pain, cough, shortness of breath, dysuria, fall, constipation, diarrhea. On further asking she doesn't think that it is related with her menstruation. Her menstrual cycles are regular. LMP was in april 15. Currently she is in [address] She is no sexually active and doesnt think she can be . She has history of doxycycline induced, raised ICP, she is currently on Flinz stone, Multivitamin. She think the headache, she has is much different than she had with doxycycline. We will She was recently admitted on May 16, 2016 for similar complains. Patient is claiming that he has history of chronic abdominal pain for which she is taking methadone from [facility] in [place]. She is following the pain clinic. She is also following the psychiatrist, Dr. Zepeda and trying to get rid of marijuana. Allergies-doxycycline, morphine, lorazepam, Naprosyn, ibuprofen Social Hx - she is in the school and [place] in medical assistance program . She was smoking 1 pack per day since the age of 16 , blood now decreased to 1/2 PPD, is still using marijuana, last dose was a week ago. 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 Guardado and Now following aircraft designer Dr. Rolon, at [facility]. Allergies/Medications Allergies: Coded Allergies: doxycycline (Severe, INCREASED CRANIAL PRESSURE 05/15/16) morphine (Severe, ANAPHYLAXIS 05/15/16) lorazepam (From ATIVAN) (Intermediate, PSYCHOSIS 05/15/16) meperidine (From DEMEROL) (Intermediate, RASH 05/15/16) ibuprofen (From MOTRIN) (Mild, HX GASTRIC ULCERS, CAUSES IRRITATION AND BLEEDING 05/15/16) Home Med list Clonazepam 0.5 MG TABLET 1 TAB PO BIDP PRN ANXIETY (Reported) Desvenlafaxine Succinate (Pristiq ER) 50 MG TAB.ER.24H 1.5 TAB PO DAILY Depression (Reported) Hydroxyzine HCl 50 MG TABLET 1 TAB PO BID INSOMNIA (Reported) Methadone Hydrochloride (Methadone HCl) 10 MG TABLET 65 MG PO DAILY PAIN ( Reported) CONFIRMED WITH [facility] [place] ON 05/16/16 Metoclopramide HCl (Reglan) 10 MG TABLET 1 TAB PO TIDPRN NAUSEA/VOMITING 30 minutes before meals and bedtime Mirtazapine 30 MG TABLET 2 TAB PO QHS INSOMNIA (Reported) Multivitamin (Multi-Day Vitamins) 1 EACH TABLET 1 TAB PO DAILY SUPPLEMENT ( Reported) Ondansetron (Zofran Odt) 4 MG TAB.RAPDIS 1 TAB SL TID NAUSEA (Reported) Pantoprazole Sodium (Protonix) 40 MG TABLET.DR 1 TAB PO DAILY REFLUX ( Reported) Prazosin HCl (Minipress) 5 MG CAPSULE 1 CAP PO QPM INSOMNIA (Reported) Prochlorperazine Maleate 5 MG TABLET 1 TAB PO 4 TIMES/DAY Nausea (Reported) Quetiapine Fumarate 200 MG TABLET 1 TAB PO BID DEPRESSION/INSOMNIA (Reported) Quetiapine Fumarate 200 MG TABLET 3 TAB PO QPM INSOMNIA (Reported) Compliance With Home Meds: GOOD Past History Travel History Traveled to [place] past 21 day No Medical History Blood Transfusion Hx: No Neurological: NONE EENT: NONE Cardiovascular: NONE Respiratory: NONE Gastrointestinal: pancreatitis, VOMITTING SYNDROME PERFORATED GASTRIC ULCER Hepatic: NONE Renal: NONE Musculoskeletal: NONE Psychiatric: anxiety, depression Endocrine: NONE Blood Disorders: NONE Cancer(s): NONE CATHEAD WORKER/Reproductive: NONE History of MRSA: No History of VRE: No History of CDIFF: No Isolation History: Standard Surgical History Surgical History: perforated duodenal ulcers Past Family/Social History Family History Relations & Conditions if any SISTER (She had pancreatitis and now having similar vomiting syndrome). MOTHER (pancreatic cancer in maternal grand mother and of it.). Psychosocial History Who Do You Live With? parent, sibling Services at Home: None Primary Language: Chinese Smoking Status: Current Everyday Smoker ETOH Use: denies use (as she had nausea/vomiting) Illicit Drug Use: marijuana Functional Ability ADLs Independent: dressing, eating, toileting, bathing. Ambulation: independent IADLs Independent: shopping, housework, finances, food prep, telephone, transportation , medication admin. Sexual History Past Sexual History Unobtainable at this time Review of Systems Review of Systems Constitutional: Reports: weakness. Denies: chills, diaphoresis, fever, malaise. EENTM: Denies: no symptoms. Cardiovascular: Denies: chest pain, edema, orthopena, palpitations, peripheral edema. Respiratory: Denies: cough, hemoptysis, orthopnea, short of breath, sputum production, stridor. GI: Reports: abdominal pain, nausea, vomiting. Denies: bloating, constipation, diarrhea, distention, bowel incontinence, bloody stool, changes in stool. Genitourinary: Denies: discharge, dysuria, frequency, hematuria, hesitation, nocturia, pain. Musculoskeletal: Denies: back pain, gout, joint pain, joint swelling, muscle pain, muscle stiffness. Skin: Denies: cysts, change in skin color, change in hair/nails, dryness, erythema, jaundice, lesions, lymphangitis, lumps, moles. Neurological/Psychological: Reports: anxiety, depressed, emotional problems. Exam & Diagnostic Data Last 24 Hrs of Vital Signs/I&O Vital Signs Date Time Temp Pulse Resp B/P Pulse O2 O2 Flow FiO2 Ox Delivery Rate 06/06 2345 97.7 58 18 110/70 96 Room Air 06/06 2108 98.2 58 20 140/77 99 Room Air 06/06 2007 97.1 56 18 128/66 97 Room Air 06/06 1718 97.1 54 20 125/65 99 Room Air 06/06 1540 97.8 06/06 1455 51 18 119/69 99 Room Air 06/06 1230 97.8 53 16 125/72 98 Room Air 06/06 0916 97.7 65 18 154/81 95 Room Air Intake & Output 06/07 0800 06/07 0000 06/06 1600 Intake Total 2100 1000 Output Total 50 Balance 2100 950 Intake, IV 2100 1000 Output, Urine 50 Patient 81.647 kg 81.647 kg Weight Physical Exam General Appearance Alert, Oriented X3, Cooperative, No Acute Distress Skin No Rashes, No Breakdown HEENT Atraumatic, PERRLA, EOMI, dry mucouse membranes Neck Supple, No JVD Cardiovascular Normal S1, Normal S2 Lungs Clear to Auscultation, Normal Air Movement Abdomen Soft, mild tenderness in RUQ Neurological Normal Gait, Normal Speech, Strength at 5/5 X4 Ext, Normal Tone, Sensation Intact, Cranial Nerves 3-12 NL, Reflexes 2+ Extremities No Clubbing, No Cyanosis, No Edema Vascular Normal Pulses, Pulses Symmetrical Last 24 Hrs of Labs/Alejandro: Laboratory Tests 06/06/16 1619: Lactic Acid Cancelled 06/06/16 1412: Lactic Acid 0.9 06/06/16 1412: Anion Gap 10, Estimated GFR > 60, BUN/Creatinine Ratio 23.3, Glucose 80, Calcium 9.4, Total Bilirubin 0.6, AST 21, ALT 42, Alkaline Phosphatase 94, Total Protein 7.5, Albumin 4.3, Globulin 3.2, Albumin/Globulin Ratio 1.3, Lipase 57, CBC w Diff NO MAN DIFF REQ, RBC 5.37, MCV 83.5, MCH 27.5, RDW 16.8 H, MPV 7.9, Gran % 57.4, Lymphocytes % 35.4, Monocytes % 6.5, Eosinophils % 0.3, Basophils % 0.4, Absolute Granulocytes 4.8, Absolute Lymphocytes 3.0, Absolute Monocytes 0.5, Absolute Eosinophils 0, Absolute Basophils 0, PUBS MCHC 32.9 L Diagnostic Data EKG Results not done CXR Results Right subclavian catheter terminates within the distal SVC. No acute pulmonary process is identified. Assessment/Plan Assessment: Patient is a 26-year-old female with significant past medical history chronic hereditary pancreatitis, vomiting syndrome, history of perforated gastric ulcer, chronic use of Merijuana, mild erosive gastritis, gastroparesis, chronic pain syndrome presented with chief complaints of abdominal pain on right upper side of abdomen, associated with nausea and vomiting since two day. Vital signs at time of admission - temperature 97.7, pulse 65, respiratory 18, blood pressure 150/81, SPO2 95% Chest x-ray on 04/05/2017 -Right subclavian catheter terminates within the distal SVC. No acute pulmonary process is identified. Problem List - Dehydration secondary to vomiting Cyclic vomiting syndrome, chronic hereditary pancreatitis, history of perforated gastric ulcer, mild erosive gastritis, gastroparesis chronic use of Merijuana, chronic pain syndrome on methadone Plan - Dehydration secondary to vomiting/cyclic vomiting syndrome, probably secondary to marijuana use or gastroparesis - * As she was difficult prick, ED physician decided to have her on subclavian catheter * patient is admitted for observation in * We will start patient on IV fluids normal saline 100 mL per hour * Strict intake output charting * We'll keep patient on clear liquid diet overnight and restart regular diet tomorrow * opiates and pain medication can induce it including methadon - we will avoid opiates, and we will discuss with attending for methadon. * patient is already following psychiatrist Dr Zepeda, claims that working on quiting merijuana, we will encourage her more. * we will use iv reglan/zofran/tigan as needed * we will check vitals every shift * we will follow UA/Utox Hx of mild erosive gastritis, perforated PUD - * We will start patient on pantoprazole 40 mg IV BID * She can f/u with her gasteroenterologist as an out patient Diet -Clear liquid diet, if tolerated than advanced diet Code status - FC DVT prophylaxis - ALPS/heparin As Ranked By This Provider Problem List: 1. Intractable vomiting 2. Nondiabetic gastroparesis Core Measures/Miscellaneous Acute Coronary Syndrome ACS Diagnosis: No Cerebrovascular Accident CVA/TIA Diagnosis: No Congestive Heart Failure CHF Diagnosis: No Venous Thromboembolism VTE Risk Factors: Age > 40 VTE Prophylaxis Ordered Inpt: Mechanical (ALPS/TEDS) No Mech VTE prophylaxis d/t: No contraindications No VTE Pharm Prophylaxis d/t: No contraindications VTE Diagnosis: No VTE Type: NONE VTE Confirmed by (Test): NONE Severe Sepsis Severe Sepsis Present: No Septic Shock Septic Shock Present: No Miscellaneous Documentation Attending Case Discussed With: BURTON HIGHTOWER MDNorma Primary Care Physician: UNKNOWN Patient sees these Specialists gasteroenterologist -schemario Level of Patient Care: General Medicine ALLIE TERRY 06/06/16 2212: Resident Review Statement Resident Statement: discussed with market research intern Other Findings: She is 26-year-old woman with past medical history of hereditary chronic pancreatitis, cyclic vomiting syndrome or cannabinoid induced hyperemesis syndrome, chronic pain on methadone, perforated gastric ulcer status post surgery is here with intractable nausea, vomiting and right upper quadrant abdominal pain for last 2 days. Patient was recently here for same complaints. She was seen by GI and had upper GI endoscopy with biopsies. Endoscopy showed mild erosive gastritis and gastro-paresis. Gastric and small bowel Biopsies showed minimal chronic inflammation and no evidence of H. pylori infection or malignancy. According to patient's symptoms started 2 days ago and yesterday she was not able to keep anything down. She reports that color of vomitus is yellow and RUQ abdominal pain is intermittent, 8/10 in intensity, shooting pain radiating to her back that aggravates while she is vomiting and on standing. She tried Pepto-Bismol, Zofran and Phenergan at home but did not get any relief. She denies any blood in her vomitus, diarrhea or constipation. Her color of stool is normal. No change in urinary habits. She reports dizziness and palpitations but denies any fever, chills, chest pain or discomfort, breathing difficulty. She smokes half pack per day since age of 16. Initially used to smoke 1 pack per day. She also smokes marijuana. Last smoked last week. Denies drinking alcohol. She is a student. Her sister has same pancreatic issues. Family history positive for pancreatic cancer in maternal grandmother. Vitals on admission: Temperature 97.7, pulse 65, respiratory rate 18, blood pressure 154/81 and oxygen saturation 95% on room air. In ER because of poor peripheral IV access patient got a right subclavian catheter. Positive physical exam findings: Dry mucous membranes. Tenderness on deep palpation of right upper quadrant anatomical area. Helms sign negative. Pertinent labs: Normal Assessment and plan She is 26-year-old woman with past medical history of hereditary chronic pancreatitis, cyclic vomiting syndrome or cannabinoid induced hyperemesis syndrome, chronic pain on methadone, perforated gastric ulcer status post surgery is going to be admitted on general medicine floor. Problem list 1. intractable nausea, vomiting and right upper quadrant abdominal pain most likely secondary to cyclic vomiting syndrome/cannabinoid induced hyperemesis syndrome and gastroparesis. Patient is still using marijuana 2. History of chronic pain on methadone Plan Monitor vitals every shift. We will continue IV fluids, antiemetics, IV PPI. Will start patient on clear liquid diet. Advance diet as tolerated. We will avoid opiates for pain management. Consider Tylenol and Toradol for pain. We will continue all her home medications. Follow-up UA and urine tox. Subcutaneous Lovenox for DVT prophylaxis. Full code CAMPBELL MCBRIDE, [facility] 06/06/16 2304: Attending MD Review Statement Attending Statement Attending MD Statement: examined this patient, discuss w/resident/PA/RETOUCHING OPERATOR, agreed w/resident/PA/RETOUCHING OPERATOR Attending Assessment/Plan: 26 yo F with h/o hereditary pancreatitis, cyclic vomiting, chronic pain on methadone ([facility] [place], 65 mg), perforated gastric ulcer s/p surgery, is here with 2-day h/o intractable nausea, vomiting and RUQ abdominal pain. She was admitted to [facility] (05/16 05/19) for similar issues, underwent GI eval and EGD which showed mild erosive gastritis with gastroparesis (path shows minimal chronic inflammation, reactive gastropathy). She has an appointment with her aircraft designer (Dr. Rolon) at [facility] this week. She continues to smoke cigarettes and also used marijuana 1 week back. Vitals stable. Labs unremarkable. UA and Urine tox pending. Right subclavian catheter placed in ER given poor access, placement confirmed with CXR. 1. Intractable nausea, vomiting and RUQ pain 2/2 cyclic vomiting syndrome ( cannabis use) vs. Gastroparesis. 23 Obs on GM, clear liquids, advance diet as tolerated, IV fluids, IV reglan TID, IV PPI BID. Minimize opiate use. IV ketorolac for pain. Outpatient GI follow up. ?Consider trial of IV erythromycin per GI recs. Counseled about importance of cessation of marijuana use. 2. Chronic pain. Ct. Methadone 65 mg daily. Continue home meds klonopin, hydroxyzine, prazosin, seroquel, mirtazapine and pristiq. DVT ppx Lovenox. Full code.
--- NOTE | 2016-06-06 22:22 | NUR ---
PT ARRIVED TO FLOOR FROM ER WITH DISTRIBUTION. PT AWAKE, A/OX3, ON ROOM AIR, OOB INDEPENDENTLY WITH STEADY GAIT, RCW CENTRAL LINE IN PLACE, IV FLUIDS INFUSING PER ORDER, PT DENIES PAIN AT THIS TIME BUT C/O ONGOING NAUSEA, PT ORIENTED TO ROOM AND CALL HAWKINS WITHIN REACH. WILL MONITOR.
[2016-06-06 23:45] VITALS: BP 110/70
--- NOTE | 2016-06-07 07:07 | PN- Housestaff ---
PACO MCBRIDE,[facility] 06/07/16 0706: Subjective Follow-up For: nausea and vomiting Subjective: I saw and examined the patient this am, she is alert and oriented, appears in mild distress, reports she had an episode of vomiting in the AM, still feels nauseated and has not been able to take her pills. reports abdominal pain more prominent on the right upper below the ribs and also in the upper mid abdomen. Review of Systems Constitutional: Denies: chills, fever, malaise, weakness. EENTM: Reports: no symptoms. Cardiovascular: Denies: chest pain, palpitations. Respiratory: Denies: cough, short of breath. Gastrointestinal: Reports: abdominal pain, nausea, vomiting. Denies: constipation, diarrhea, melena, bloody stool, changes in stool. Genitourinary: Reports: no symptoms. Musculoskeletal: Reports: no symptoms. Skin: Reports: no symptoms. Neurological/Psychological: Reports: anxiety. Objective Last 24 Hrs of Vital Signs/I&O Vital Signs Date Time Temp Pulse Resp B/P Pulse O2 O2 Flow FiO2 Ox Delivery Rate 06/07 1646 98.2 59 22 124/74 97 Room Air 06/07 0834 98.2 44 18 110/60 98 Room Air 06/06 2345 97.7 58 18 110/70 96 Room Air 06/06 2108 98.2 58 20 140/77 99 Room Air 06/06 2007 97.1 56 18 128/66 97 Room Air Intake & Output 06/07 1600 06/07 0800 06/07 0000 Intake Total 1280 2100 Output Total 10 Balance -10 1280 2100 Intake, IV 800 2100 Intake, Oral 480 Output, 10 Emesis Patient 81.647 kg Weight Physical Exam General Appearance: Alert, Oriented X3, Cooperative, Mild Distress Skin: No Rashes, No Breakdown, No Significant Lesion HEENT: Atraumatic, EOMI, Mucous Membr. moist/pink Neck: Supple, No JVD Cardiovascular: Normal S1, Normal S2, No Murmurs, bradycardic, regular with sporadic extra beats Lungs: Clear to Auscultation, Normal Air Movement Abdomen: Normal Bowel Sounds, Soft, tenderness in the RUQ and epigaster Neurological: Normal Speech, Strength at 5/5 X4 Ext, Normal Tone, Sensation Intact, Cranial Nerves 3-12 NL Extremities: No Cyanosis, No Edema, Normal Pulses, No Tenderness/Swelling Vascular: Normal Pulses, Pulses Symmetrical Current Medications: Current Medications Sig/Shorty Start time Last Medication Dose Route Stop Time Status Admin Acetaminophen 650 MG Q6P PRN 06/06 2114 AC PO Clonazepam 0.5 MG BID PRN 06/06 2115 AC PO 06/13 211 Desvenlafaxine 75 MG DAILY 06/07 1000 AC Succinate PO Diazepam 2 MG Q6 06/07 1800 AC IV Diazepam 5 MG ONCE ONE 06/07 1215 DC 06/07 IV 06/07 1216 1241 Enoxaparin Sodium 40 MG DAILY 06/07 1000 AC 06/07 SC 1112 Hydromorphone HCl 0.6 MG ONCE ONE 06/07 1430 DC 06/07 IV 06/07 1431 1437 Hydroxyzine HCl 50 MG BID 06/06 2199 AC PO Ketorolac 15 MG .STK-MED ONE 06/07 0536 DC Tromethamine IM 06/07 0537 Ketorolac 30 MG .STK-MED ONE 06/07 0534 DC Tromethamine IM 06/07 0535 Ketorolac 15 MG Q8P PRN 06/06 2130 AC 06/07 Tromethamine IV 0538 Methadone HCl 65 MG DAILY 06/07 1000 AC 06/07 PO 1333 Metoclopramide HCl 10 MG ONCE ONE 06/07 1100 DC 06/07 IV 06/07 1101 1112 Metoclopramide HCl 10 MG Q6-PRN PRN 06/06 2115 AC 06/07 IV 0536 Mirtazapine 60 MG 2200 06/06 2330 AC PO Multivitamins 1 TAB DAILY 06/07 1000 AC Therapeutic PO Ondansetron HCl 4 MG ONCE ONE 06/07 0800 DC 06/07 IV 06/07 0801 0834 Ondansetron HCl 4 MG Q6-PRN PRN 06/06 2100 AC 06/07 IV 1550 Ondansetron HCl 0 .STK-MED ONE 06/06 1753 DC .ROUTE Ondansetron HCl 4 MG ONCE ONE 06/06 1745 DC 06/06 IV 06/06 1746 1754 Pantoprazole Sodium 40 MG BID 06/07 1000 AC 06/07 IV 1113 Patient Medication 1 ED .STK-MED ONE 06/07 1336 DC Teaching ED 06/07 1337 Prazosin HCl 5 MG QPM 06/06 2200 AC PO Promethazine HCl 25 MG Q6 PRN 06/07 1327 AC 06/07 IV 06/14 1326 1330 Promethazine HCl 25 MG Q6 PRN 06/07 1115 DC PO 06/14 1114 Promethazine HCl 25 MG Q4 PRN 06/07 1030 DC PO 06/14 1029 Quetiapine Fumarate 600 MG QPM 06/06 2200 AC PO Quetiapine Fumarate 200 MG BID 06/06 220 AC PO Sodium Chloride 1,000 ML .Q10H 06/06 2100 AC 06/07 IV 06/08 0304 0652 Assessment/Plan Assessment: Patient is a 26-year-old female with significant past medical history chronic hereditary pancreatitis, vomiting syndrome, history of perforated gastric ulcer, chronic use of Marijuana, mild erosive gastritis, gastroparesis, chronic pain syndrome presented with chief complaints of abdominal pain on right upper side of abdomen, associated with nausea and vomiting since two day. Vital signs at time of admission - temperature 97.7, pulse 65, respiratory 18, blood pressure 150/81, SPO2 95% Chest x-ray on 04/05/2017 -Right subclavian catheter terminates within the distal SVC. No acute pulmonary process is identified. Problem List - Dehydration secondary to vomiting Cyclic vomiting syndrome, chronic hereditary pancreatitis, history of perforated gastric ulcer, mild erosive gastritis, gastroparesis chronic use of Marijuana, chronic pain syndrome on methadone Plan - Dehydration secondary to vomiting/cyclic vomiting syndrome, probably secondary to marijuana use or gastroparesis - * As she was difficult prick, ED physician decided to have her on subclavian catheter * patient is admitted for observation in * We will start patient on IV fluids normal saline 100 mL per hour * Strict intake output charting * We'll keep patient on clear liquid diet overnight and restart regular diet tomorrow * opiates and pain medication can induce it including methadone - we will avoid opiates, and we will discuss with attending for methadone. * patient is already following psychiatrist Dr Zepeda, claims that working on quitting Marijuana, we will encourage her more. * iv reglan/zofran/tigan as needed (Q6 each) * check vitals every shift * follow UA/Utox * As patient has not been able to take clonazepam and methadone PO will give her IV valium for symptoms and as needed IV dilaudid for pain Hx of mild erosive gastritis, perforated PUD - * pantoprazole 40 mg IV BID * She can f/u with her gasteroenterologist as an out patient Diet -Clear liquid diet, if tolerated than advanced diet Code status - FC DVT prophylaxis - ALPS/heparin Problem List: 1. Intractable vomiting 2. Nondiabetic gastroparesis 3. Gastritis 4. Chronic pancreatitis Pain Ratin Pain Location: abdomen Pain Goal: Pain 4 or less Pain Plan: tylenol for mild pain PRN IV dilaudid Tomorrow's Labs & Rationales: no labs DENI MCBRIDE,URIAH 06/07/16 1406: Attending MD Review Statement Attending Statement Attending MD Statement: examined this patient, discuss w/resident/PA/INTERNAL GRINDER SET UP OPERATOR, agreed w/resident/PA/INTERNAL GRINDER SET UP OPERATOR, discussed with family, reviewed EMR data (avail) Attending Assessment/Plan: Patient seen and examined and plan of care discussed with the medical team. Patient's the mother was in the room at the time. Patient continues to have severe nausea vomiting. She claims that she has vomited overnight to 3 times. She is unable to keep anything down including medications. She is currently afebrile with stable vital signs. Her admission CBC and chemistries were within normal limits. Abdomen is slightly tender over the right upper quadrant area. Assessment plan * Cyclical vomiting syndrome * Hereditary the current academic titers * Chronic pain syndrome Plan The patient unable take Klonopin he will begin diazepam IV 2 mg every 6 to avoid benzo withdrawal. Agree with adding Reglan Regular and patient methadone by by mouth route. If she is unable to keep methadone down then for pain control she can be given Dilaudid when necessary IV.
--- NOTE | 2016-06-07 07:58 | PN- Student ---
DEVORA ATWOOD 06/07/16 0749: Subjective Subjective: 26 yo female with a PMH of chronic hereditary pancreatitis, perforated gastric ulcer x2, chronic marijuan use, chronic pain syndrome (abdominal pain), cyclic vomiting syndrome, and gastroparesis present with nausea, non-bloody, bilious vomiting and RUQ abdominal pain for the past 2 days. Patient is seen and examined at bedside. Patient is doing ok. Patient reports persistent nausea and vomiting (6x since admission) and is unable to tolerating fluids or medications PO. Patient reports no relief following emesis. Patient reports sharp RUQ pain that radiates to the back and states pain is exacerbated by movements and vomiting. Patient reports pain is similar to the pain associated with pancreatitis. Patient reports her last episode of pancreatitis was 3 months ago. Patient denies fevers, chills, nightsweats, dysphagia, chest pain, palpitation, shortness of breath, constipation, diarrhea, dysuria, and difficulty with bowel movements. Objective Objective: Gen: AAOx3, Patient appears fatigue and uncomfortable but not in acute distress. Skin: Warm and Moist to touch Head: Normocephalic, Atraumatic Oropharynx: non-erythematous and edematous with moist mucous membranes Cardiac: RRR, normal S1,S2, no murmurs/rubs/gallops Respiratory: CTAB, no decreased breath sounds, no increased work of breathing Abdomen: soft, non-distended, NTTP to right and left lower quadrants, mildly tender to deep palpation to the LUQ and epigastric region, moderately tender to deep palpation of the RUQ, negative Helms's sign, no hepatomegaly and splenomegaly appreciated, gallbladder is non-palpable, no rebound or guarding, no CVA tenderness bilaterally : deferred Ext: no cyanosis, edema, and pallor Psych: deferred Results Results: Laboratory Tests 06/06/16 1619: Lactic Acid Cancelled 06/06/16 1412: Lactic Acid 0.9 06/06/16 1412: Anion Gap 10, Estimated GFR > 60, BUN/Creatinine Ratio 23.3, Glucose 80, Calcium 9.4, Total Bilirubin 0.6, AST 21, ALT 42, Alkaline Phosphatase 94, Total Protein 7.5, Albumin 4.3, Globulin 3.2, Albumin/Globulin Ratio 1.3, Lipase 57, CBC w Diff NO MAN DIFF REQ, RBC 5.37, MCV 83.5, MCH 27.5, RDW 16.8 H, MPV 7.9, Gran % 57.4, Lymphocytes % 35.4, Monocytes % 6.5, Eosinophils % 0.3, Basophils % 0.4, Absolute Granulocytes 4.8, Absolute Lymphocytes 3.0, Absolute Monocytes 0.5, Absolute Eosinophils 0, Absolute Basophils 0, PUBS MCHC 32.9 L Current Medications Sig/Shorty Start time Last Medication Dose Route Stop Time Status Admin Acetaminophen 650 MG Q6P PRN 06/06 2114 AC PO Acetaminophen 0 .STK-MED ONE 06/06 1541 DC IV Acetaminophen 1,000 MG ONCE ONE 06/06 1530 DC 06/06 IV 06/06 153 1540 Clonazepam 0.5 MG BID PRN 06/06 2114 AC PO 06/13 211 Desvenlafaxine 75 MG DAILY 06/07 1000 AC Succinate PO Enoxaparin Sodium 40 MG DAILY 06/07 1000 AC 06/07 SC 1112 Famotidine 0 .STK-MED ONE 06/06 1431 DC IV Famotidine 20 MG ONCE ONE 06/06 1430 DC 06/06 IV 06/06 1431 1437 Hydroxyzine HCl 50 MG BID 06/06 2200 AC PO Ketorolac 15 MG Q8P PRN 06/060 AC 06/07 Tromethamine IV 0538 Lidocaine 0 .STK-MED ONE 06/06 1249 DC .ROUTE Methadone HCl 65 MG DAILY 06/07 1000 AC PO Metoclopramide HCl 10 MG ONCE ONE 06/07 1100 DC 06/07 IV 06/07 1101 1112 Metoclopramide HCl 10 MG Q6-PRN PRN 06/06 2115 AC 06/07 IV 0536 Metoclopramide HCl 0 .STK-MED ONE 06/06 1431 DC .ROUTE Metoclopramide HCl 10 MG ONCE ONE 06/06 1430 DC 06/06 IV 06/06 1431 1437 Mirtazapine 60 MG 06/06 2330 AC PO Multivitamins 1 TAB DAILY 06/07 1000 AC Therapeutic PO Ondansetron HCl 4 MG ONCE ONE 06/07 0800 DC 06/07 IV 06/07 0801 0834 Ondansetron HCl 4 MG Q6-PRN PRN 06/06 2100 AC 06/07 IV 0020 Ondansetron HCl 0 .STK-MED ONE 06/06 1753 DC .ROUTE Ondansetron HCl 4 MG ONCE ONE 06/06 1745 DC 06/06 IV 06/06 1746 1754 Pantoprazole Sodium 40 MG BID 06/07 1000 AC 06/07 IV 1113 Pantoprazole Sodium 0 .STK-MED ONE 06/06 1431 DC IV Pantoprazole Sodium 40 MG ONCE ONE 06/06 1430 DC 06/06 IV 06/06 1431 1437 Prazosin HCl 5 MG QPM 06/06 2200 AC PO Promethazine HCl 25 MG Q6 PRN 06/07 1115 AC PO 06/14 1114 Promethazine HCl 25 MG Q4 PRN 06/07 1030 DC PO 06/14 1029 Promethazine HCl 25 MG ONCE ONE 06/06 1545 DC 06/06 IV 06/06 1546 1540 Promethazine HCl 0 .STK-MED ONE 06/06 1541 DC .ROUTE Quetiapine Fumarate 600 MG QPM 06/06 2200 AC PO Quetiapine Fumarate 200 MG BID 06/06 2200 AC PO Sodium Chloride 1,000 ML .Q10H 06/06 2100 AC 06/07 IV 06/08 0304 0652 Sodium Chloride 1,000 ML BOLUS ONE 06/06 1430 DC 06/06 IV 06/06 1529 1427 Sodium Chloride 1,000 ML BOLUS ONE 06/06 1430 DC 06/06 IV 06/06 1529 1543 Orders Procedure Date/time Status Clear Liquid Diet 06/07 B Active EKG 06/07 0759 Active Change service to 06/07 0540 Active Pathway - chart 06/06 2103 Active House Staff 06/06 2103 Active Patient Data 06/06 2103 Active Code Status 06/06 2103 Active Vital Signs 06/06 2039 Active Teach/Educate 06/06 2039 Active Nutritional Intake, Monitor 06/06 2039 Active Isolation 06/06 2039 Active Intake & Output 06/06 2039 Active Patient Care Conference 06/06 2039 Active Activity/Ambulation 06/06 2039 Active URINE DRUGS OF ABUSE 06/06 2009 Active URINALYSIS 06/06 2009 Active Patient Data 06/06 1900 Active OXYGEN SETUP (GEN) 06/06 185 Active Saline Lock 06/[address] in observation 06/06 1856 Active Vital Signs 06/06 1855 Active Activity/Ambulation 06/06 185 Active Code Status 06/06 1856 Complete Intake & Output 06/06 1438 Active LACTIC ACID 06/06 1319 Complete VTE Mechanical Prophylaxis 06/06 UNK Active Laboratory Tests 06/06 06/06 06/06 1619 1412 1412 Chemistry Sodium (137 - 145 mmol/L) 140 Potassium (3.5 - 5.1 mmol/L) 4.1 Chloride (98 - 107 mmol/L) 102 Carbon Dioxide (22 - 30 mmol/L) 27 Anion Gap (5 - 16) 10 BUN (7 - 17 mg/dL) 14 Creatinine (0.5 - 1.0 mg/dL) 0.6 Estimated GFR (>60 ml/min) > 60 BUN/Creatinine Ratio (7 - 25 %) 23.3 Glucose (65 - 99 mg/dL) 80 Lactic Acid (0.7 - 2.1 mmol/L) Cancelled 0.9 Calcium (8.4 - 10.2 mg/dL) 9.4 Total Bilirubin (0.2 - 1.3 mg/dL) 0.6 AST (14 - 36 U/L) 21 ALT (9 - 52 U/L) 42 Alkaline Phosphatase (<127 U/L) 94 Total Protein (6.3 - 8.2 g/dL) 7.5 Albumin (3.5 - 5.0 g/dL) 4.3 Globulin (1.9 - 4.2 gm/dL) 3.2 Albumin/Globulin Ratio (1.1 - 2.2 %) 1.3 Lipase (23 - 300 U/L) 57 Hematology CBC w Diff NO MAN DIFF REQ WBC (4.8 - 10.8 /CUMM) 8.4 RBC (4.20 - 5.40 /CUMM) 5.37 Hgb (12.0 - 16.0 G/DL) 14.7 Hct (37 - 47 %) 44.8 MCV (81.0 - 99.0 FL) 83.5 MCH (27.0 - 31.0 PG) 27.5 RDW (11.5 - 14.5 %) 16.8 H Plt Count (130 - 400 /CUMM) 292 MPV (7.4 - 10.4 FL) 7.9 Gran % (42.2 - 75.2 %) 57.4 Lymphocytes % (20.5 - 51.1 %) 35.4 Monocytes % (1.7 - 9.3 %) 6.5 Eosinophils % (0 - 5 %) 0.3 Basophils % (0.0 - 2.0 %) 0.4 Absolute Granulocytes (1.4 - 6.5 /CUMM) 4.8 Absolute Lymphocytes (1.2 - 3.4 /CUMM) 3.0 Absolute Monocytes (0.10 - 0.60 /CUMM) 0.5 Absolute Eosinophils (0.0 - 0.7 /CUMM) 0 Absolute Basophils (0.0 - 0.2 /CUMM) 0 PUBS MCHC (33.0 - 37.0 G/DL) 32.9 L Assessment/Plan Assessment: 26 yo female with PMH of chronic hereditary pancreatitis, cyclic vomiting syndrom, chronic pain syndrome, gastroparesis, and 2 surgical repairs of perforated gastric ulcer presents with 2 day history of persistent nausea, vomiting and intermittment RUQ abdmoinal pain. Differential diagnosis includes cholecystitis, pancreatitis, biliary colic 2/2 to cholelithiasis, gastritis, peptic ulcer disease, gastroenteritis, and cyclic vomiting syndrome 2/2 to chronic cannaboid use. Given patient's normal lab values and afebrile status, it is unlikely patient has cholecystitis or gastroenteritis. Without a RUQ ultrasound, biliary colic cannot be rules out at this time. Gastritis and PUD is also less likely since patient has no bloody stool or hematemsis and her abdmoinal pain is not relieved or exacerbated with food intake. There is also no history of chronic NSAID use. While the patient's lipase level is not elevated, her history of chronic pancreatitis, active smoking history, it is likely her abdominal pain is caused by an exacerbation of her chronic pancreatitis. Plan: Persistent Nausea and Vomiting with RUQ abdominal pain: - Start IV reglan PRN for Nausea and Vomiting - Transition from PO PPI to IV PPI for acid reflux management - Maintain IVF with NS at 100ml/hr - Start IV Valium for Anxiety and prevention of benzo Withdrawal - Restart Methadone for pain managment if patient's nasuea and vomiting improves with IV reglan. - If patient continues to not tolerate PO methadone, start IV Dilaudid for pain control and prevention of methadone withdrawal. - Order RUQ Ultrasound if patient's abdominal pain worsen or is refractory to medical management - Continue clear liquid diet as tolerated - Order Urine Toxicology - Strict monitoring of patient's output and inputs ABDULAZIZ GRAHAM 06/30/16 1520: Attending MD Review Statement Attending Sign Off Attending Cosign Statement: I have: examined this patient, reviewed aval EMR data, discussd w/resident/PA/ PRODUCTION HARDENER, agreed w/resident/PA/PRODUCTION HARDENER.
[2016-06-07 08:34] VITALS: BP 110/60
[2016-06-07 16:46] VITALS: BP 124/74
--- NOTE | 2016-06-07 17:36 | NUR ---
LATE ENTRY: PT VOMITTED ABOUT HALF OF THE METHADONE THAT SHE TOOK, ABOUT 5 MINUTES AFTER TAKING THEM. MD KAREY NAIK.
[2016-06-07 23:54] VITALS: BP 118/70
--- NOTE | 2016-06-08 07:12 | PN- Housestaff ---
PACO MCBRIDE,[facility] 06/08/16 0712: Subjective Follow-up For: nausea vomiting abdominal pain Subjective: Patient is alert oriented lying in bed in no distress. She reports complete resolution of the nausea and vomiting since yesterday evening. Also Valium has been controlling her withdrawal symptoms effectively. She has tolerated clear liquids, reports mild pain in the right upper abdomen radiating to the back, which has been chronic from the past. Review of Systems Constitutional: Denies: chills, fever, malaise, weakness. EENTM: Reports: no symptoms. Cardiovascular: Reports: no symptoms. Respiratory: Reports: no symptoms. Gastrointestinal: Reports: abdominal pain. Denies: constipation, diarrhea, nausea, changes in stool, vomiting. Genitourinary: Reports: no symptoms. Musculoskeletal: Reports: no symptoms. Skin: Reports: no symptoms. Neurological/Psychological: Reports: no symptoms. Objective Last 24 Hrs of Vital Signs/I&O Vital Signs Date Time Temp Pulse Resp B/P Pulse O2 O2 Flow FiO2 Ox Delivery Rate 06/08 0818 98.7 52 18 114/92 97 Room Air 06/07 2354 98.3 57 20 118/70 98 Room Air 06/07 1646 98.2 59 22 124/74 97 Room Air Intake & Output 06/08 1600 06/08 0800 06/08 0000 Intake Total 870 900 Output Total 100 Balance 870 800 Intake, IV 750 800 Intake, Oral 120 100 Output, 100 Emesis Patient 81.647 kg Weight Physical Exam General Appearance: Alert, Oriented X3, Cooperative, No Acute Distress Skin: No Rashes, No Breakdown, No Significant Lesion HEENT: Atraumatic, EOMI Neck: Supple, No JVD Cardiovascular: Regular Rate, Normal S1, Normal S2, No Murmurs Lungs: Clear to Auscultation, Normal Air Movement Abdomen: Normal Bowel Sounds, Soft Neurological: Normal Gait, Normal Speech, Normal Tone Extremities: No Cyanosis, No Edema, Normal Pulses, No Tenderness/Swelling, subclavian catheter site is inspected, no tenderness or erythema noted. Vascular: Normal Pulses, Pulses Symmetrical Current Medications: Current Medications Sig/Shorty Start time Last Medication Dose Route Stop Time Status Admin Acetaminophen 650 MG Q6P PRN 06/06 2114 AC PO Clonazepam 0.5 MG BID 06/08 2199 CAN PO 06/15 2158 Clonazepam 0.5 MG BID PRN 02/21 2115 AC PO 06/13 2114 Desvenlafaxine 75 MG DAILY 06/07 1000 AC Succinate PO Diazepam 10 MG .STK-MED ONE 06/08 0014 DC IM 06/08 0015 Diazepam 2 MG Q6 06/07 1800 DC 06/08 IV 1141 Diazepam 10 MG .STK-MED ONE 06/07 1746 DC IM 06/07 1747 Enoxaparin Sodium 40 MG DAILY 06/07 1000 AC 06/07 SC 1112 Hydromorphone HCl 0.4 MG ONCE ONE 06/07 2100 DC 06/07 IV 06/07 210 2129 Hydromorphone HCl 0.6 MG ONCE ONE 06/07 1430 DC 06/07 IV 06/07 1431 1437 Hydroxyzine HCl 50 MG BID 06/06 2199 AC PO Ketorolac 30 MG .STK-MED ONE 06/07 1733 DC Tromethamine IM 06/07 1734 Ketorolac 15 MG Q8P PRN 06/06 2130 AC 06/08 Tromethamine IV 0711 Methadone HCl 65 MG DAILY 06/07 1000 AC 06/08 PO 0912 Metoclopramide HCl 10 MG .STK-MED ONE 06/08 0018 DC IM 06/08 0019 Metoclopramide HCl 10 MG Q6-PRN PRN 06/06 2115 AC 06/08 IV 1141 Mirtazapine 60 MG 0 06/06 2330 AC PO Multivitamins 1 TAB DAILY 06/07 1000 AC Therapeutic PO Ondansetron HCl 4 MG Q6-PRN PRN 06/06 2100 AC 06/08 IV 0617 Pantoprazole Sodium 40 MG BID 06/07 1000 AC 06/08 IV 0912 Patient Medication 1 ED .STK-MED ONE 06/07 1336 DC Teaching ED 06/07 1337 Prazosin HCl 5 MG QPM 06/06 2200 AC PO Promethazine HCl 25 MG Q6 PRN 06/07 1327 AC 06/08 IV 06/14 1326 0917 Promethazine HCl 25 MG Q6 PRN 06/07 1115 DC PO 06/14 1114 Quetiapine Fumarate 600 MG QPM 06/06 2200 AC PO Quetiapine Fumarate 200 MG BID 06/06 2200 AC PO Sodium Chloride 1,000 ML Q20H 06/08 0445 AC 06/08 IV 0438 Sodium Chloride 1,000 ML .Q10H 06/06 2100 DC 06/07 IV 06/08 0304 1731 Last 24 Hrs of Lab/Alejandro Results Last 24 Hrs of Labs/Mics: Laboratory Tests 06/08/16 0800: Anion Gap 6, Estimated GFR > 60, BUN/Creatinine Ratio 11.7 06/07/16 1900: Urine Opiates Screen > 4000.00 H, Methadone Screen > 735 H, Barbiturate Screen < 60, Ur Phencyclidine Scrn 10.50, Amphetamines Screen < 100, U Benzodiazepines Scrn < 85, Urine Cocaine Screen < 50, Urine Cannabis Screen > 80.00 H, Urine Color YEL, Urine Clarity CLEAR, Urine pH 6.0, Ur Specific [place] >= 1.030, Urine Protein NEG, Urine Ketones 40 H, Urine Nitrite NEG, Urine Bilirubin NEG@ ICTO, Urine Urobilinogen 0.2, Ur Leukocyte Esterase NEG, Ur Microscopic SEDIMENT EXAMINED, Urine RBC 1-3, Urine WBC 3-5 H, Ur Epithelial Cells MANY H, Urine Hemoglobin LARGE H, Urine Glucose NEG Assessment/Plan Assessment: Patient is a 26-year-old female with significant past medical history chronic hereditary pancreatitis, cyclic vomiting syndrome, history of perforated gastric ulcer, chronic use of Marijuana, mild erosive gastritis, gastroparesis, chronic pain syndrome presented with chief complaints of abdominal pain on right upper side of abdomen, associated with nausea and vomiting for two days. Vital signs at time of admission - temperature 97.7, pulse 65, respiratory 18, blood pressure 150/81, SPO2 95% Chest x-ray on 04/05/2017 -Right subclavian catheter terminates within the distal SVC. No acute pulmonary process is identified. Problem List - Dehydration secondary to vomiting Cyclic vomiting syndrome, chronic hereditary pancreatitis, history of perforated gastric ulcer, mild erosive gastritis, gastroparesis chronic use of Marijuana, chronic pain syndrome on methadone Bethanie: Nausea/vomiting - resolved cyclic vomiting syndrome, probably secondary to marijuana use or gastroparesis In the ED a subclavian line was put for the patient on the right side as peripheral vein was unsuccessful to establish. Patient getting discharged today, I removed the line after sterilization and removing the sutures, put pressure for 5 minutes with sterile Gauze. Packed with gauze and advised the patient to keep the packing for a few hours. If noticing any bleeding or welling or enlargement in the are she is advised to come back to the ED. * Patient has tolerated clear liquid diet overnight, advanced to regular diet for lunch * UA: showed high Hb, patient reports she was on the last day of her menses when the specimen was obtained. She also has a remote history of kidney stones 4 years ago. * Utox: positive for cannabis, opioids and methadone * As patient has been able to tolerate oral intake, methadone is given, will avoid narcotics and opioids, restarted klonipin and DC'd valium * continue iv reglan/zofran/tigan as needed (Q6 each) Hx of mild erosive gastritis, perforated PUD - * pantoprazole 40 mg IV BID will switch to PO PPI at discharge * She can f/u with her gasteroenterologist as an out patient Diet -regular diet Code status - FC DVT prophylaxis - ALPS/heparin Problem List: 1. Chronic pancreatitis 2. Gastritis 3. Nondiabetic gastroparesis 4. Intractable vomiting Pain Ratin Pain Location: abdomen (right upper radiating to the back) Pain Goal: Pain 4 or less Pain Plan: acetaminophen ketorolac oxycodone Tomorrow's Labs & Rationales: none DENI MCBRIDE,URIAH 06/08/16 0957: Attending MD Review Statement Attending Statement Attending Assessment/Plan: Attending MD Statement: examined this patient, discuss w/resident/PA/FINANCIAL UNDERWRITER, agreed w/resident/PA/FINANCIAL UNDERWRITER, discussed with family, reviewed EMR data (avail) Attending Assessment/Plan: Patient seen and examined and plan of care discussed with the medical team. Patient seems to be doing better. Her nausea vomiting has decreased. She vomited one time overnight. He was able to take some [place] ice this morning. She is currently afebrile with stable vital signs. Abdomen is soft and nontender chest exam is clear. Chemistry labs are within normal limits Assessment plan * Cyclical vomiting syndrome * Hereditary the current academic titers * Chronic pain syndrome Plan * Try switching to Klonopin by mouth and if she can take Klonopin by mouth route IV diazepam can be discontinued. If patient unable take Klonopin, then continue diazepam IV 2 mg every 6 to avoid benzo withdrawal. * Continue with Reglan, Zofran and Phenergan * Try oral methadone this morning. If patient can take methadone and stays down then Dilaudid can be discontinued. If she is unable to keep methadone down then for pain control she can be given Dilaudid when necessary IV. * The patient's oral intake is adequate and at least 1 L of the day she can be discharged this evening.
[2016-06-08 08:18] VITALS: BP 114/92
--- NOTE | 2016-06-08 13:09 | Patient Discharge Instructions ---
Discharge Instructions General Discharge Information You were seen/treated for: nausea and vomiting Special Instructions: Please: 1. follow up with gasteroenterologist within a week after discharge 2. follow up with PCP within a week of discharge 3. follow up with psychiatry within a week of discharge 4. Please come back to the ED if symptoms recur, also if there is any bleeing or swelling at the site of the IV line on the chest, come back to the ED. Diet Continue normal diet: Yes Recommended Diet: Regular Activity Activity Self Limited: Yes Acute Coronary Syndrome Inclusion Criteria At DC or during hospital stay patient has or had the following: ACS DIAGNOSIS No Discharge Core Measures Meds if any: Prescribed or Continued at Discharge Meds if any: NOT Prescribed or Continued at Discharge Congestive Heart Failure Inclusion Criteria At DC or during hospital stay patient has or had the following: CHF DIAGNOSIS No Discharge Core Measures Meds if any: Prescribed or Continued at Discharge Meds if any: NOT Prescribed or Continued at Discharge Cerebrovascular accident Inclusion Criteria At DC or during hospital stay patient has or had the following: CVA/TIA Diagnosis No Discharge Core Measures Meds if any: Prescribed or Continued at Discharge Meds if any: NOT Prescribed or Continued at Discharge Venous thromboembolism Inclusion Criteria VTE Diagnosis No VTE Type NONE VTE Confirmed by (Test) NONE Discharge Core Measures - Per Current guidelines, there needs to be overlap - treatment for the first 5 days of Warfarin therapy. - If discharged on Warfarin prior to 5 days of - overlap therapy, the patient will need to be - assessed for post discharge needs including - *Post discharge parental anticoagulation - *Warfarin and/or parental anticoagulation education - *Follow up date to check INR post discharge At least 5 days overlap therapy as Inpatient No Meds if any: Prescribed or Continued at Discharge Note: Overlap Therapy is Warfarin and Anticoagulant Meds if any: NOT Prescribed or Continued at Discharge
[2016-06-08] MEDS ORDERED: CLONAZEPAM0.5 M2 PO (15:02)
--- NOTE | 2016-06-08 15:43 | Discharge Summary ---
Visit Information Visit Dates Admission Date: 06/06/16 Discharge Date: 06/08/16 Hospital Course Course Attending Physician: DENI MCBRIDE,URIAH Primary Care Physician: UNKNOWN Hospital Course: Patient is a 26-year-old female with PMH of chronic hereditary pancreatitis, cyclic vomiting syndrome, history of perforated gastric ulcer, chronic use of Marijuana, mild erosive gastritis, gastroparesis, chronic pain syndrome presented with chief complaints of abdominal pain on right upper side of abdomen , associated with nausea and vomiting for two days. Patient was admitted to general medicine floor for the management of severe nausea/vomiting and dehydration. The follow were addressed during her hospital stay: Severe nausea/vomiting in the setting of cyclic vomiting syndrome Possibly also secondary to marijuana use or gastroparesis. In the ED a right side subclavian line was put for the patient on the right side as peripheral vein was unsuccessful to establish. Patient was started on IV normal saline with strict intake output charting, nausea and vomiting was controlled by three agents on board: Zofran, Reglan and Phenergan (each of them Q6 PRN so that the patient could receive one of them every 2 hours. This regimen controlled her nausea during the course of the first 24 hours and her diet was gradually advanced from clear liquid to regular as tolerated. Subclavian line was taken out at discharge with adequate pressure being applied for < 5 minutes without evidence of bleeding or hematoma. History of opioid abuse on methadone Patient was unable to take methadone on the day admission due to severe nausea and vomiting. She was given diazepam until N/V subsided during next day in the afternoon and she was restarted on her home dose of methadone 65 mg daily. Hx of mild erosive gastritis, perforated PUD Patient was given pantoprazole 40 mg IV BID which was switched to PO PPI at discharge. She will follow up with her mechanical laboratory technician as an out patient. Chronic pain syndrome Patient was given IV dilaudid to control pain during admission which was switched to her home dose of Klonopin after Nausea and vomiting subsided. Diet Regular diet DVT prophylaxis ALPS and SQ heparin Code status FC Allergies: Coded Allergies: doxycycline (Severe, INCREASED CRANIAL PRESSURE 05/15/16) morphine (Severe, ANAPHYLAXIS 05/15/16) lorazepam (From ATIVAN) (Intermediate, PSYCHOSIS 05/15/16) meperidine (From DEMEROL) (Intermediate, RASH 05/15/16) ibuprofen (From MOTRIN) (Mild, HX GASTRIC ULCERS, CAUSES IRRITATION AND BLEEDING 05/15/16) Significant Procedures: SERVICE DATE: 06/06/16-1318 EXAM TYPE: RAD - XRY-PORTABLE CHEST XRAY EXAMINATION: XR PORTABLE CHEST CLINICAL INFORMATION: Right subclavian line placement. COMPARISON: None. TECHNIQUE: Portable AP view of the chest was obtained. FINDINGS: Single AP view of the chest demonstrates a right subclavian catheter, with the distal tip of the catheter visualized terminating within the distal SVC. The lungs are well-expanded and clear without focal airspace consolidation. No pleural effusions or pneumothoraces are identified. Cardiomediastinal contours are within normal limits. Soft tissues are unremarkable. No acute osseous abnormality is identified. IMPRESSION: Right subclavian catheter terminates within the distal SVC. No acute pulmonary process is identified. DICTATED BY: ESAU TAVERAS MD DATE/TIME DICTATED:06/06/161403 CNC MACHINE SETTER:MARCELINO DATE/TIME TRANSCRIBED:06/06/161403 Pertinent Lab Results: 06/06/16 1412: Anion Gap 10, Estimated GFR > 60, BUN/Creatinine Ratio 23.3, Glucose 80, Calcium 9.4, Total Bilirubin 0.6, AST 21, ALT 42, Alkaline Phosphatase 94, Total Protein 7.5, Albumin 4.3, Globulin 3.2, Albumin/Globulin Ratio 1.3, Lipase 57, CBC w Diff NO MAN DIFF REQ, RBC 5.37, MCV 83.5, MCH 27.5, RDW 16.8 H, MPV 7.9, Gran % 57.4, Lymphocytes % 35.4, Monocytes % 6.5, Eosinophils % 0.3, Basophils % 0.4, Absolute Granulocytes 4.8, Absolute Lymphocytes 3.0, Absolute Monocytes 0.5, Absolute Eosinophils 0, Absolute Basophils 0, PUBS MCHC 32.9 L 06/08/16 0800: Anion Gap 6, Estimated GFR > 60, BUN/Creatinine Ratio 11.7 06/07/16 1900: Urine Opiates Screen > 4000.00 H, Methadone Screen > 735 H, Barbiturate Screen < 60, Ur Phencyclidine Scrn 10.50, Amphetamines Screen < 100, U Benzodiazepines Scrn < 85, Urine Cocaine Screen < 50, Urine Cannabis Screen > 80.00 H, Urine Color YEL, Urine Clarity CLEAR, Urine pH 6.0, Ur Specific [place] >= 1.030, Urine Protein NEG, Urine Ketones 40 H, Urine Nitrite NEG, Urine Bilirubin NEG@ ICTO, Urine Urobilinogen 0.2, Ur Leukocyte Esterase NEG, Ur Microscopic SEDIMENT EXAMINED, Urine RBC 1-3, Urine WBC 3-5 H, Ur Epithelial Cells MANY H, Urine Hemoglobin LARGE H, Urine Glucose NEG Disposition Summary Disposition Principal Diagnosis: Cyclic vomiting syndrome Additional Diagnosis: Chronic hereditary pancreatitis, Opioid dependence on methadone, Gastroparesis, history of perforated gastric ulcer. Discharge Disposition: home or self care Discharge Instructions General Discharge Information Code Status: Full Code Patient's Diet: Regular Patient's Activity: as tolerated Follow-Up Instructions/Appts: Please: 1. follow up with gasteroenterologist within a week after discharge 2. follow up with PCP within a week of discharge 3. follow up with psychiatry within a week of discharge 4. come back to the ED if symptoms recur, also if there is any bleeing or swelling at the site of the IV line on the chest, please come back to the ED. Medications at Discharge Discharge Medications: Continue taking these medications: Clonazepam (Clonazepam) 0.5 MG TABLET 1 Tablet ORAL 2 x Daily as needed as needed for ANXIETY Qty = 60 Comments: NOT GIVEN IN HOSPITAL Ondansetron (Zofran Odt) 4 MG TAB.RAPDIS 1 Tablet SUBLINGUAL THREE TIMES DAILY Qty = 30 Comments: LAST GIVEN 06/08/16 @ 1400 Hydroxyzine HCl (Hydroxyzine HCl) 50 MG TABLET 1 Tablet ORAL TWICE DAILY Qty = 60 Comments: NOT GIVEN WHILE IN HOSPITAL Prazosin HCl (Minipress) 5 MG CAPSULE 1 Capsule ORAL Every night Comments: NOT GIVEN WHILE IN HOSPITAL Quetiapine Fumarate (Quetiapine Fumarate) 200 MG TABLET 1 Tablet ORAL TWICE DAILY Qty = 60 Comments: NOT GIVEN WHILE IN HOSPITAL Mirtazapine (Mirtazapine) 30 MG TABLET 2 Tablet ORAL TAKE AT BEDTIME Qty = 60 Comments: NOT GIVEN WHILE IN HOSPITAL Desvenlafaxine Succinate (Pristiq ER) 50 MG TAB.ER.24H 1.5 Tablet ORAL DAILY Qty = 45 Comments: NOT GIVEN WHILE IN HOSPITAL Pantoprazole Sodium (Protonix) 40 MG TABLET.DR 1 Tablet ORAL DAILY Comments: IV PROTONIX GIVEN WHILE IN HOSPITAL Prochlorperazine Maleate (Prochlorperazine Maleate) 5 MG TABLET 1 Tablet ORAL 4 TIMES A DAY Comments: LAST GIVEN 06/08/16 @ 0900 Methadone Hydrochloride (Methadone HCl) 10 MG TABLET 65 Milligram ORAL DAILY Instructions: CONFIRMED WITH [facility] [place] 05/16/16 Comments: LAST GIVEN 06/08/16 @ 1000 Metoclopramide HCl (Reglan) 10 MG TABLET 1 Tablet ORAL THREE TIMES A DAY NEEDED Qty = 21 Instructions: 30 minutes before meals and bedtime Comments: LAST GIVEN 06/08/16 @ 0600 Multivitamin (Multi-Day Vitamins) 1 EACH TABLET 1 Tablet ORAL DAILY Comments: PER PT Start taking the following new medications: Clonazepam (Clonazepam) 0.5 MG TABLET 1 Tablet ORAL TWICE DAILY as needed for ANXIETY Qty = 10 No Refills Comments: NOT GIVEN Ondansetron (Zofran Odt) 4 MG TAB.RAPDIS 1 Tablet SUBLINGUAL THREE TIMES DAILY as needed for nausea/vomiting Qty = 6 No Refills Comments: LAST GIVEN 06/08/16 @ 1400 Copies To: HOMERO GAMBLE MD
[2016-06-08] MEDS ORDERED: ZOFRAN ODT4 M1 SL (15:52)
--- NOTE | 2016-06-08 17:05 | Event Note ---
Event Note Event Note: Subclavian IV line was discontinued after sterilizing the skin and removing the sutures. Pressure was placed for 5 minutes. No bleeding, swelling or hematoma were noticed. Patient is breathing well and breath sounds are normal and lungs sound clear. Patient is advised to keep the dressing on for a few hours and come back to the ED if there is bleeding from the site or there is any swelling/ hematoma.
== END 2016-06-08 16:40 | DRG 422 ==
LOC: ENRESERVTM → ENRESERVDT → ERH 09:08 → ERHI 18:56 → 2NB 18:56
PROVIDERS: Emergency Medicine; ADMIT Student in an Organized Health Care Education/Training Program
DX: E86.0 Dehydration (principal); G43.A1 Cyclical vomiting, in migraine, intractable; K86.1 Other chronic pancreatitis; K29.70 Gastritis, unspecified, without bleeding; F11.90 Opioid use, unspecified, uncomplicated; G89.4 Chronic pain syndrome
CPT/HCPCS: 2NBP; 6040; 36415; 80307; 81001; 82436; 93005; 93010; 96361; 96372; 96374; 96375; 99291; G0378; J0131; J1170; J1650; J1885; J2405; J2550; J2765

== ENCOUNTER 2016-08-27 05:39 | Emergency (ER) | payer OTHER ==
[~2016-08-27] VITALS: Ht 170.2 cm; Wt 77.1 kg
[~2016-08-27 05:39] MED LIST changes: +MULTI-DAY VITA1 EACH PO
--- NOTE | 2016-08-27 06:32 | ED GI/GU/ABDOMINAL COMPLAINT ---
History of Present Illness General Chief Complaint: Nausea, Vomiting, Diarrhea Stated Complaint: NAUSEA AND VOMITING Source: patient, family, old records Exam Limitations: no limitations Vital Signs & Intake/Output Vital Signs & Intake/Output Vital Signs Date Time Temp Pulse Resp B/P B/P Pulse O2 O2 Flow FiO2 Mean Ox Delivery Rate 08/27 1025 96.5 64 19 110/65 97 Room Air 08/27 0833 97.0 74 105/57 08/27 0759 97.0 70 18 122/70 98 Room Air 08/27 0548 96.3 66 18 135/88 98 Room Air Allergies Coded Allergies: doxycycline (Severe, INCREASED CRANIAL PRESSURE 05/15/16) morphine (Severe, ANAPHYLAXIS 05/15/16) lorazepam (From ATIVAN) (Intermediate, PSYCHOSIS 05/15/16) meperidine (From DEMEROL) (Intermediate, RASH 05/15/16) ibuprofen (From MOTRIN) (Mild, HX GASTRIC ULCERS, CAUSES IRRITATION AND BLEEDING 05/15/16) Triage Note: PT TO ED C/O N/V SINCE YESTERDAY. PT HAS NOT BEEN ABLE TO KEEP DOWN ANY FOOD/LIQUID. PT DESCRIBES VOMITUS YELLOW AND BILIOUS IN CHARACTER. Triage Nurses Notes Reviewed? yes LMP (ages 10-50): unknown ? n Is pt currently ? No Onset: 1 day Duration: day(s):, continues in ED, waxing and waning Timing: recent history Quality/Severity: aching, cramping, moderate, vomiting Location: generalized abdomen Radiation: no radiation Activities at Onset: none Prior Abdominal Problems: similar symptoms Past Sexual History: Unobtainable at this time Modifying Factors: Worsens With: eating. Associated Symptoms: abdominal pain, loss of appetite, nausea/vomiting HPI: Completed treatment for pneumonia 2 weeks ago. 1 day prior to admission patient complains of recurrent and progressive nausea vomiting associated with crampy epigastric pain is improved after vomiting. Symptomatology is more of her gastroparesis than her chronic hereditary pancreatitis. Denies fever chills chest pain cough shortness of breath headache dysuria rash bleeding. (OSMANI MCBRIDE,NOY) Reconcile Medications Clonazepam 0.5 MG TABLET 1 TAB PO BIDP PRN ANXIETY (Reported) Clonazepam 0.5 MG TABLET 1 TAB PO BID PRN ANXIETY Desvenlafaxine Succinate (Pristiq ER) 50 MG TAB.ER.24H 1.5 TAB PO DAILY Depression (Reported) Hydroxyzine HCl 50 MG TABLET 1 TAB PO BID INSOMNIA (Reported) Methadone Hydrochloride (Methadone HCl) 10 MG TABLET 65 MG PO DAILY PAIN ( Reported) CONFIRMED WITH [facility] [place] ON 05/16/16 Metoclopramide HCl (Reglan) 10 MG TABLET 1 TAB PO TIDPRN NAUSEA/VOMITING 30 minutes before meals and bedtime Mirtazapine 30 MG TABLET 2 TAB PO QHS INSOMNIA (Reported) Multivitamin (Multi-Day Vitamins) 1 EACH TABLET 1 TAB PO DAILY SUPPLEMENT ( Reported) Ondansetron (Zofran Odt) 4 MG TAB.RAPDIS 1 TAB SL TID NAUSEA (Reported) Ondansetron (Zofran Odt) 4 MG TAB.RAPDIS 1 TAB SL TID PRN NAUSEA Ondansetron (Zofran Odt) 4 MG TAB.RAPDIS 1 TAB SL TID PRN nausea/vomiting Pantoprazole Sodium (Protonix) 40 MG TABLET.DR 1 TAB PO DAILY REFLUX ( Reported) Prazosin HCl (Minipress) 5 MG CAPSULE 1 CAP PO QPM INSOMNIA (Reported) Prochlorperazine Maleate 5 MG TABLET 1 TAB PO 4 TIMES/DAY Nausea (Reported) Quetiapine Fumarate 200 MG TABLET 1 TAB PO BID DEPRESSION/INSOMNIA (Reported) (MOJGAN MCBRIDE,JADEN Escobar) Past History Travel History Traveled to [place] past 21 day No Medical History Any Pertinent Medical History? see below for history Neurological: NONE EENT: NONE Cardiovascular: NONE Respiratory: NONE Gastrointestinal: pancreatitis, VOMITTING SYNDROME PERFORATED GASTRIC ULCER Hepatic: NONE Renal: NONE Musculoskeletal: NONE Psychiatric: anxiety, depression Endocrine: NONE Blood Disorders: NONE Cancer(s): NONE BARK SPUDDER/Reproductive: NONE History of MRSA: No History of VRE: No History of CDIFF: No Surgical History Surgical History: perforated duodenal ulcers Psychosocial History Services at Home None What is your primary language Jamaican Tobacco Use: Current Daily Use Daily Tobacco Use Amount/Type: => 5 Cigarettes daily Family History Family History, If Any: SISTER (She had pancreatitis and now having similar vomiting syndrome). MOTHER (pancreatic cancer in maternal grand mother and of it.). Hx Contributory? No (OSMANI MCBRIDE,NOY) Review of Systems Review of Systems Constitutional: Reports: see HPI, malaise. EENTM: Reports: no symptoms. Respiratory: Reports: no symptoms. Cardiovascular: Reports: no symptoms. GI: Reports: see HPI, abdominal pain, nausea, vomiting. Genitourinary: Reports: no symptoms. Musculoskeletal: Reports: no symptoms. Skin: Reports: no symptoms. Neurological/Psychological: Reports: no symptoms. Hematologic/Endocrine: Reports: no symptoms. Immunologic/Allergic: Reports: no symptoms. All Other Systems: Reviewed and Negative (NOY KEEN MD) Physical Exam Physical Exam General Appearance: well developed/nourished, alert, awake, anxious, moderate distress Head: atraumatic, normal appearance Eyes: Bilateral: normal appearance, PERRL, EOMI, normal inspection. Ears, Nose, Throat, Mouth: hearing grossly normal, dry mucous membranes Neck: normal inspection, supple, full range of motion, normal alignment, no midline tenderness Respiratory: normal breath sounds, chest non-tender, no respiratory distress, quiet respiration, lungs clear Cardiovascular: regular rate/rhythm, normal peripheral pulses, norml femoral pulses equa Peripheral Pulses: 4+ carotid (R), 4+ carotid (L) Gastrointestinal: normal bowel sounds, soft, non-tender, no organomegaly Back: normal inspection, normal range of motion, no vertebral tenderness Extremities: normal range of motion, no ligament instability Neurologic/Psych: no motor/sensory deficits, awake, alert, oriented x 3, normal gait, supervisor pressing department II-XII nml as tested Skin: intact, normal color, warm/dry Core Measures ACS in differential dx? No Severe Sepsis Present: No Septic Shock Present: No (NOY KEEN MD) Progress Differential Diagnosis: biliary colic, cholecystitis, gastritis, pancreatitis, gastroparesis, cyclic vomiting syndrome Plan of Care: Orders Procedure Date/time Status Clear Liquid Diet 08/27 L Active LIPASE 08/27 617 Complete HUMAN BETA HCG SCREEN 08/27 617 Complete COMPREHENSIVE METABOLIC PANEL 08/27 617 Complete CBC WITHOUT DIFFERENTIAL 08/27 617 Complete Laboratory Tests 08/27/16 0730: Anion Gap 13, Estimated GFR > 60, BUN/Creatinine Ratio 44.0 H, Glucose 108 H, Calcium 9.2, Total Bilirubin 0.5, AST 23, ALT 15, Alkaline Phosphatase 71, Total Protein 7.5, Albumin 4.3, Globulin 3.2, Albumin/Globulin Ratio 1.3, Lipase 54, Total Beta HCG NEGATIVE, CBC w Diff NO MAN DIFF REQ, RBC 4.40, MCV 81.1, MCH 26.4 L, RDW 15.3 H, MPV 8.2, Gran % 81.4 H, Lymphocytes % 15.1 L, Monocytes % 3.0, Eosinophils % 0, Basophils % 0.5, Absolute Granulocytes 6.0, Absolute Lymphocytes 1.1 L, Absolute Monocytes 0.2, Absolute Eosinophils 0, Absolute Basophils 0, PUBS MCHC 32.5 L Initial ED EKG: none Hand-Off Endorsed To: JADEN ULRICH MD Endorsed Time: 0700 Pending: labs (NOY KEEN MD) Comments: Patient is feeling much better after the IV Thorazine. Patient will have a clear liquid tray here in the emergency department. As long she tolerates clear liquid tray then she can be discharged home. (MOJGAN MCBRIDE,JADEN Escobar) Departure Departure Condition: Stable Clinical Impression Primary Impression: Gastroparesis Secondary Impressions: Cyclic vomiting syndrome Qualifiers: Vomiting Intractability: unspecified Nausea presence: with nausea Qualified Code: G43.A0 - Cyclical vomiting, not intractable Referrals: UNKNOWN (PCP) Departure Forms: Customer Survey General Discharge Information (NOY KEEN MD) Departure Disposition: HOME OR SELF CARE Additional Instructions: Return if symptoms worsen or for any concerns. Prescriptions: Current Visit Scripts Ondansetron (Zofran Odt) 1 TAB SL TID PRN NAUSEA #30 TAB Ref 2 (MOJGAN MCBRIDE,JADEN Escobar)
[2016-08-27 08:23] LABS: ABSOLUTE BASOPHIL COUNT 0 /CUMM (0.0-0.2); ABSOLUTE EOSINOPHIL COUNT 0 /CUMM (0.0-0.7); ABSOLUTE LYMPH COUNT 1.1 /CUMM (1.2-3.4); ABSOLUTE MONOCYTE COUNT 0.2 /CUMM (0.10-0.60); BASOPHIL % 0.5 % (0.0-2.0); EOSINOPHIL % 0 % (0-5); GRANULOCYTE % 81.4 % (42.2-75.2); HEMATOCRIT 35.7 % (37-47); MEAN CORPUSCULAR HGB 26.4 PG (27.0-31.0); MEAN CORPUSCULAR HGB CONC 32.5 G/DL (33.0-37.0); MEAN CORPUSCULAR VOLUME 81.1 FL (81.0-99.0); MEAN PLATELET VOLUME 8.2 FL (7.4-10.4); PLATELET COUNT 291 /CUMM (130-400); RBC DISTRIBUTION WIDTH 15.3 % (11.5-14.5); WHITE BLOOD CELL COUNT 7.4 /CUMM (4.8-10.8)
[2016-08-27] MEDS ORDERED: ZOFRAN ODT4 M1 SL (09:09)
[2016-08-27 10:25] VITALS: BP 110/65
== END 2016-08-27 10:23 ==
LOC: ERH 05:39
PROVIDERS: Emergency Medicine
DX: R11.2 Nausea with vomiting, unspecified (principal); K31.84 Gastroparesis
CPT/HCPCS: 96361; 96374; 96375

== ENCOUNTER → 2016-10-05 | Day surgery (SDC) | payer OTHER ==
[~2016-10-05] VITALS: Ht 170.2 cm; Wt 72.6 kg
--- NOTE | 2016-10-05 14:24 | Operative Report ---
Operative/Inv Procedure Report Surgery Date: 10/05/16 Name of Procedure: Hysteroscopy, dilation and curettage, endometrial polypectomy with mild Essure device, Mirena IUD insertion Pre-Operative Diagnosis: Abnormal uterine bleeding, suspicion of endometrial polyp Post-Operative Diagnosis: Same Estimated Blood Loss: scant Surgeon/Check Writer Salesperson: KYA HARO DO Anesthesia: tiva IV Fluids: 700 mL Urine Output: Not measured Drains: None Specimens: Endometrial curettage with endometrial polyp via the myoSure device, endocervical curettage Complications: None Condition: Good Operative Indication: This patient is a 26-year-old female who presents with a several month history of heavy and irregular periods. She had presented from another office with report of a possible endometrial polyp. I also performed an ultrasound the office that demonstrated a small area of thickened endometrium. She was advised to follow up with either a office hysteroscopy or office saline infusion, [place] in order to confirm polyp due to her extensive medical history. She however refused as she reports that she would not be able to tolerate such procedure in the office. Rather she wanted to proceed to the operating room for definitive procedure possible polypectomy. Is significant for very difficult IV access. PICC line placement for the day prior to procedure which she has done in the past for many multiple procedures and hospital admissions in preparation for today's surgery. Patient was counseled on the risks benefits and alternatives of the procedure including risk of bleeding infection possible uterine perforation need for additional procedures or complication occur, competitions with IUD including expulsion or perforation or persistent abnormal uterine bleeding, she was also instructed on PICC line care and avoidance of any illicit drug use prior to proceeding with surgery. The patient has stated verbal understanding of all the above and desired to proceed. Operative/Procedure Note Note: The patient was taken operating room where anesthesia was obtained without difficulty. She was placed in the dorsal lithotomy position and examined under anesthesia. She had a very small anteverted uterus and no adnexal masses. She was then prepared and draped in usual sterile fashion. A Graves speculum was placed inside the patient's vagina and the cervix visualized and a paracervical block was performed with 6 L of 1% lidocaine plain. The cervix was noted to be deep within the vagina. The anterior lip of the cervix was grasped with a single-tooth tenaculum and the cervix was then progressively dilated to 21 Persian and 7 mm with Hegar dilators. Diagnostic hysteroscopy was performed using the Judge sure hysteroscope. She had a parametrial polyp that originated from the anterior wall of the uterus. Otherwise she had a normal-appearing initial cavity and normal-appearing bilateral tubal ostia. The myosure device was then activated and the polyp was removed without difficulty. Small areas of fluffy endometrium were also removed to the Judge sure device. D&C was performed with the Judge sure device small tissue was noted. Hysteroscope was then removed. A Mirena IUD was then inserted in the usual sterile fashion after sounding the uterus to 6 cm. All instruments were then removed from the patient 's uterus cervix and vagina. Hemostasis of tenaculum sites was obtained with silver nitrate. All sponge, lap counts and needle counts were correct 2 the patient was taken to the recovery area in stable condition. I will remove the pedicle edges prior to discharge. Findings: Small nulliparous cervix, small anteverted uterus, uterine sound length 6 , endometrium polyp originating from the anterior wall of the uterus, normal- appearing bilateral tubal ostia Discharge Disposition: Same Day Admissions CC: KYA HARO DO
== END ==
LOC: STS 01:03
DX: N84.0 Polyp of corpus uteri (principal); N92.0 Excessive and frequent menstruation with regular cycle; Z30.430 Encounter for insertion of intrauterine contraceptive device; F17.200 Nicotine dependence, unspecified, uncomplicated; Z79.899 Other long term (current) drug therapy
CPT/HCPCS: 81025; J0131; J1885; J2250; J2405